=== PATIENT | female | born 1965 | race Caucasian/White ===

== ENCOUNTER 2018-10-15 08:40 | Outpatient (REF) | payer BC, SELFPAY ==
[2018-10-15 13:02] LABS: ALT 54 U/L (12-78); AST 27 U/L (15-37); Anion Gap 8.7 mmol/L (3-11); BUN 17 mg/dL (7-18); CO2 25.3 mmol/L (21.0-32.0); CREATININE 0.89 mg/dL (0.55-1.02); Calcium 9.6 mg/dL (8.5-10.1); Chloride 104 mmol/L (98-107); Cholesterol 206 mg/dL (50-200); Glucose 96 mg/dL (70-100); HDL Cholesterol 66 mg/dL (40-60); LDL CHOLESTEROL 120 mg/dL (<100); Potassium 4.7 mmol/L (3.5-5.1); Sodium 138 mmol/L (136-145); Triglyceride 90 mg/dL (30-150)
== END 2018-10-15 09:00 ==
LOC: NCHCN 08:40
PROVIDERS: PCP Nurse Practitioner Family; Visit Provider Nurse Practitioner Family
DX: E21.3 Hyperparathyroidism, unspecified (principal); F32.9 Major depressive disorder, single episode, unspecified; N39.3 Stress incontinence (female) (male); K30 Functional dyspepsia; R53.83 Other fatigue; I10 Essential (primary) hypertension; E78.00 Pure hypercholesterolemia, unspecified
CPT/HCPCS: 80048; 80061; 83721; 84450; 84460

== ENCOUNTER 2019-09-08 15:43 | Outpatient (REF) | payer BC, SELFPAY ==
--- NOTE | 2019-09-08 15:15 | PAPFT_PTH ---
PATIENT: Sarah Gomez LOC: [facility]#:[id number] AGE/SX: 54/F ROOM: RE09/08/[address]: Kamilah Evans : 1965 BED: DIS: 09/08/2019 SPEC #: [id number] RECD: 09/09/19 12:36 STATUS: ALIX REBrett #: [id number] VICENTE: 09/08/19 15:[address]: Kamilah Evans DEPT: [facility] Cytology RECD BY: Ashley Wyatt Tissues: 1 - CX/ENDOCX FOR PAP SMEARS Procedures: PAP THIN PREP/UVM Screening HPV DNA PROBE Comments: [id number]
[2019-09-08 21:47] LABS: Abs Immature Grans 0.01 k/cumm (0.0-0.09); Absolute Basophil Count 0.03 k/cumm (0.0-0.2); Absolute Eosinophil Count 0.06 k/cumm (0.0-0.7); Absolute Lymphocyte Count 1.24 k/cumm (1.2-3.4); Absolute Monocyte Count 0.49 k/cumm (0.11-0.7); Absolute Neutrophil Count 3.35 k/cumm (1.2-6.7); Basophils % 0.6; Eosinophils % 1.2; HCT 41.8 % (36.0-46.0); HGB 13.7 g/dL (12.0-15.5); Immature Grans % 0.2 %; Lymphocytes % 23.9; Mean Corp. HGB Concentration 32.8 g/dL (32.0-36.0); Mean Corpuscular Hemoglobin 26.9 pg (27.0-33.0); Mean Corpuscular Volume 82.1 fL (80-95); Mean Platelet Volume 9.9 fL (8.0-11.0); Monocytes % 9.5; Neutrophils % 64.6; Platelet Count 340 x1000/uL (130-400); RBC 5.09 m/cumm (4.00-5.20); RBC Distribution Width 14.1 % (11.7-14.6); White Blood Cell Count 5.18 k/cumm (4.4-10.8)
[2019-09-08 22:30] LABS: Vitamin D 25 Total 18.2 ng/ml (30-100)
[2019-09-08 23:30] LABS: ALT 43 U/L (14-59); AST 20 U/L (15-37); Albumin 4.2 g/dL (3.4-5.0); Alkaline Phosphatase 91 U/L (46-116); Anion Gap 14.7 mmol/L (3-11); BUN 13 mg/dL (7-18); Bilirubin, Total 0.2 mg/dL (0.2-1.0); CO2 21.3 mmol/L (21.0-32.0); CREATININE 0.77 mg/dL (0.55-1.02); Calcium 8.8 mg/dL (8.5-10.1); Calculated LDL 138 mg/dL (<100); Chloride 101 mmol/L (98-107); Cholesterol 231 mg/dL (<200); Glucose 86 mg/dL (74-106); HDL Cholesterol 65 mg/dL (40-60); Potassium 4.3 mmol/L (3.5-5.1); Sodium 137 mmol/L (136-145); TSH (W/Ref FT4) 2.13 uIU/mL (0.36-3.74); Total Protein 7.2 g/dL (6.4-8.2); Triglyceride 143 mg/dL (<150); Vitamin B12 528 pg/mL (193-986)
[2019-09-09 18:27] LABS: Estradiol 21 pg/mL (See Note)
[2019-09-10 14:24] LABS: LH 36.4 mIU/mL (See Note); Prolactin 9.4 ng/mL (See Table)
== END 2019-09-08 16:03 ==
LOC: NCHCN 15:43
PROVIDERS: PCP Nurse Practitioner Family; Visit Provider Nurse Practitioner Family
DX: Z00.00 Encounter for general adult medical examination without abnormal findings (principal); R53.83 Other fatigue; F32.9 Major depressive disorder, single episode, unspecified; E83.52 Hypercalcemia; E21.3 Hyperparathyroidism, unspecified; R06.83 Snoring; R19.7 Diarrhea, unspecified; N95.9 Unspecified menopausal and perimenopausal disorder; Z12.4 Encounter for screening for malignant neoplasm of cervix; Z01.419 Encounter for gynecological examination (general) (routine) without abnormal findings; Z11.51 Encounter for screening for human papillomavirus (HPV)
CPT/HCPCS: 80053; 80061; 82306; 88142; 82607; 82670; 83001; 83002; 84146; 84443; 85025; 87624

== ENCOUNTER 2019-09-11 01:18 | Outpatient (CLI) | payer BC, SELFPAY ==
--- NOTE | 2019-09-11 08:00 | DI.US_ITS ---
EXAM: US PELVIS TRANSVAGINAL CLINICAL HISTORY: POSTMENOPAUSAL BLEEDING, N95.9 TECHNIQUE: Ultrasound performed using standard protocol. COMPARISON: LEFT BREAST ULTRASOUND from 11/11/2008 FINDINGS: Pelvic ultrasound was performed transabdominally and transvaginally. Please see the accompanying yuan a sheet for measurements of pelvic structures. Uterus is unremarkable in appearance. The endometria l stripe is about 8 millimeters in thickness and appears fairly homogeneous. This measurement is abn ormally thick for a postmenopausal patient, endometrial biopsy should be considered. There is a possible small endometrial polyp in the lower uterine segment noted as well. There is a 9 millimeter simple cyst of the right ovary. Otherwise ovaries have an unremarkable appea malachi. No free fluid identified in the cul de sac. Limited scanning of the kidneys is unremarkable. IMPRESSION: Thickened endometrial stripe in a postmenopausal patient. Possible lower uterine segment endometrial polyp. Endometrial biopsy should be considered for further evaluation.
== END 2019-09-11 01:38 ==
PROVIDERS: PCP Nurse Practitioner Family; Visit Provider Nurse Practitioner Family
DX: N95.0 Postmenopausal bleeding (principal); R93.89 Abnormal findings on diagnostic imaging of other specified body structures; N83.291 Other ovarian cyst, right side
CPT/HCPCS: 76830; 76856

== ENCOUNTER 2019-10-02 16:31 | Outpatient (REF) | payer BC, SELFPAY ==
--- NOTE | 2019-10-02 14:20 | ENDOMET_PTH ---
PATIENT: Sarah Gomez LOC: [facility] U#:[id number] AGE/SX: 54/F ROOM: RE10/02/[address]: Marva Bronson : 1965 BED: DIS: 10/02/2019 SPEC #: [id number] RECD: 10/02/19 16:52 STATUS: ALIX REQ #: [id number] VICENTE: 10/02/19 14:[address]: Marva Bronson DEPT: Surgical Specimen RECD BY: Ashley Wyatt ENTERED: 10/02/19 16:53 SP TYPE: Endomet OTHR DR: Kamilah Evans Tissues: 1 - ENDOMETRIUM BX/PARISH Procedures: GROSS AND MICRO LEVEL 4 Comments: [id number]
== END 2019-10-02 16:51 ==
LOC: LBN 16:31
PROVIDERS: PCP Nurse Practitioner Family; Visit Provider Obstetrics & Gynecology Gynecology
DX: N95.0 Postmenopausal bleeding (principal)
CPT/HCPCS: 88305

== ENCOUNTER 2019-10-07 02:39 | Outpatient (CLI) | payer BC, SELFPAY ==
--- NOTE | 2019-10-07 | DI.MAMMO_ITS ---
EXAM: MAMMO SCREENING CLINICAL HISTORY: SCREENING Z12.31 TECHNIQUE: Mammograms were interpreted according to the usual protocol including computer analysis w [employer] CAD system, tomosynthesis and C-view imaging. COMPARISON: 2012 through 2016 FINDINGS: The breasts are composed of heterogeneously dense fibroglandular densities, Breast Density category C . No suspicious masses or suspicious microcalcifications are seen. No skin thickening or abnormal axillary lymph nodes are seen. There has been no significant change from prior exams. IMPRESSION: BIRADS Category 1, negative mammogram. Yearly screening mammography is recommended. BREAST DENSITY: The mammogram demonstrates the patient's breast tissue is dense. Dense breast tissue is very common and is not abnormal but dense breast tissue can make it harder to find cancer on a ma mmogram. Also, dense breast tissue may increase breast cancer risk. This information about the result of the mammogram report was provided to the patient to raise their awareness. Use this report when y ou speak with the patient about their risks for breast cancer, which includes their family history. A t that time, you may recommend additional screening tests (Ultrasound or MRI) as they might be useful based on their risk. A negative radiographic report should not delay biopsy if a dominant or clinically suspicious mass is present. Up to ten percent of cancers are not identified on mammography. A negative report may reinforce clinical impression. Adenosis and dense breasts may obscure an underlying neoplasm. False positive reports average 6 to 10%.
== END 2019-10-07 02:59 ==
PROVIDERS: PCP Nurse Practitioner Family; Visit Provider Nurse Practitioner Family
DX: Z12.31 Encounter for screening mammogram for malignant neoplasm of breast (principal)
CPT/HCPCS: 77063; 77067

== ENCOUNTER 2019-12-30 01:50 | Outpatient (CLI) | payer BC, SELFPAY ==
[2019-12-30 10:17] LABS: HCT 40.2 % (36.0-46.0); HGB 13.1 g/dL (12.0-15.5); Mean Corp. HGB Concentration 32.6 g/dL (32.0-36.0); Mean Corpuscular Hemoglobin 26.9 pg (27.0-33.0); Mean Corpuscular Volume 82.5 fL (80-95); Mean Platelet Volume 9.4 fL (8.0-11.0); Platelet Count 316 x1000/uL (130-400); RBC 4.87 m/cumm (4.00-5.20); RBC Distribution Width 14.3 % (11.7-14.6); White Blood Cell Count 4.95 k/cumm (4.4-10.8)
[2019-12-30 10:57] LABS: Anion Gap 9.2 mmol/L (3-11); BUN 18 mg/dL (7-18); CO2 24.8 mmol/L (21.0-32.0); CREATININE 0.94 mg/dL (0.55-1.02); Calcium 9.2 mg/dL (8.5-10.1); Chloride 102 mmol/L (98-107); Glucose 88 mg/dL (74-106); Potassium 4.1 mmol/L (3.5-5.1); Sodium 136 mmol/L (136-145)
== END 2019-12-30 02:10 ==
PROVIDERS: PCP Nurse Practitioner Family; Visit Provider Obstetrics & Gynecology Gynecology
DX: N95.0 Postmenopausal bleeding (principal); Z01.818 Encounter for other preprocedural examination; Z01.812 Encounter for preprocedural laboratory examination
CPT/HCPCS: 36415; 80048; 85027; 86850; 86900; 86901

== ENCOUNTER 2020-01-05 08:32 | Outpatient (CLI) | payer BC, SELFPAY ==
[2020-01-05 19:58] LABS: COVID-19 RT-PCR UVMMC Result Negative (Negative)
== END 2020-01-05 08:52 ==
PROVIDERS: PCP Nurse Practitioner Family; Visit Provider Obstetrics & Gynecology Gynecology
DX: Z11.59 Encounter for screening for other viral diseases (principal)
CPT/HCPCS: U0003

== ENCOUNTER 2020-01-07 06:09 | Day surgery (SDC) | payer BC, SELFPAY ==
[2020-01-07 06:28] VITALS: BP 140/87; PULSE 73; RESP 16; TEMP 36.6; O2SAT 97
[2020-01-07] MEDS: Lactated Ringers 1,000 ML 125 ML IV (06:50)
[2020-01-07] MEDS: Bupivacaine 0.25% Pres-Free 30 ML VIAL (07:56)
--- NOTE | 2020-01-07 08:10 | ENDOMET_PTH ---
PATIENT: Sarah Gomez LOC: [facility] U#:[id number] AGE/SX: 54/F ROOM: RE01/07/[address]: Marva Bronson : 1965 BED: DIS: 01/07/2020 SPEC #: [id number] RECD: 01/07/20 11:26 STATUS: ALIX REQ #: [id number] VICENTE: 01/07/20 08:[address]: Marva Bronson DEPT: Surgical Specimen RECD BY: Ashley Wyatt ENTERED: 01/07/20 11:26 SP TYPE: Endomet OTHR DR: Kamilah Evans Tissues: 1 - ENDOMETRIUM BX/PARISH Procedures: GROSS AND MICRO LEVEL 4 Comments: [id number]
[2020-01-07 08:40] VITALS: BP 131/68; PULSE 70; RESP 16; TEMP 36.2; O2SAT 98
[2020-01-07 08:45] VITALS: BP 129/76; PULSE 60; RESP 17; TEMP 36.2; O2SAT 100
--- NOTE | 2020-01-07 08:45 | W.PM.DSUDISC ---
Discharge Plan Discharge Details Attending Provider: Marva Bronson Primary Care Provider: Kamilah Evans Home Meds and New Rx's Prescriptions: No Action spironolactone 25 mg tablet 25 mg PO DAILY RF: 0 loratadine 10 MG tablet,disintegrating 10 mg PO DAILY RF: 0 paroxetine HCl [Paxil] 10 MG tablet 10 mg PO DAILY RF: 0 verapamil 180 MG capsule,ext rel. pellets 24 hr 360 mg PO DAILY RF: 0 lisinopril 5 MG tablet 5 mg PO DAILY RF: 0 Discharge Instructions Stand Alone Forms: DSU Post Gynecology Surgery DS: Diagnosis Discharge Diagnosis (1) Postmenopausal bleeding: Status: Acute (2) H/O dilation and curettage: Status: Acute
[2020-01-07 08:50] VITALS: BP 115/68; PULSE 61; RESP 13; TEMP 36.2; O2SAT 100
[2020-01-07 09:05] VITALS: BP 139/93; PULSE 59; RESP 16; TEMP 36.4; O2SAT 99
[2020-01-07 09:42] VITALS: BP 132/67; PULSE 60; RESP 16; TEMP 36.5; O2SAT 97
--- NOTE | 2020-01-07 14:29 | W.PM.OP ---
Date of service: 01/07/20 Time of Service: 14:29 Operative Note Operative Note DATE OF PROCEDURE: 01/07/20 PRE-OP DIAGNOSIS: Postmenopausal bleeding Postmenopausal bleeding, endometrial polyps PROCEDURE: Hysteroscopy, suction curettage of endometrial lining and polypectomy SURGEON: Marva Bronson ANESTHESIA: JENNIFER ESTIMATED BLOOD LOSS: 5 PATHOLOGY: other (Endometrial curettings) COMPLICATIONS: None Patient was transported to: same day Patient's condition: stable Indications: Two episodes of postmenopausal bleeding with 8 mm ES. An endometrial biopsy which returned with no intact endometrial glands. Pt agreed to definitive assessment with hysteroscopy and D&C. Findings: Thin appearing endometrial lining with several small polypoid structures. Procedure Description: Patient was brought to the emergency room where she was placed in the dorsal supine position and laryngeal mask anesthesia was administered without difficulty. She was then placed in the dorsal lithotomy position in yellowfin stirrups with SCDs in place. She was prepped and draped in the usual sterile fashion and a surgical timeout was performed. The bladder was drained with in and out catheterization for approximately 50 cc of clear alison urine. A bivalve speculum was placed in the vagina and the anterior lip of the cervix was grasped with a single-tooth tenaculum. A paracervical block was performed using 10 cc quarter percent Marcaine without epinephrine. The uterus was sounded to 10 cm and was sequentially dilated for a maximum dilatation of 17 Sequeira. This allowed placement of the hysteroscope into the uterine cavity with normal saline as the distention medium and the above-noted findings. An 8 mm curved suction cannula was inserted into the uterine cavity and all 4 quadrants of the uterine cavity were sequentially suction curetted. A banjo curette was then inserted and in a similar fashion all 4 quadrants of the uterine cavity were curetted. The banjo curette was removed and the hysteroscope was reintroduced and the uterine cavity inspected. The previously noted polyps were not visible. Hysteroscope was removed as were the other vaginal instruments. The tenaculum site was noted be hemostatic. Patient was then placed in the dorsal supine position awakened from anesthesia, extubated, and transported recovery area in stable condition. All sponge lap needle counts correct x2.
== END 2020-01-07 10:13 | disposition home or self-care (01) ==
LOC: SUR 06:10
PROVIDERS: PCP Nurse Practitioner Family; Visit Provider Obstetrics & Gynecology Gynecology
PROC: 0UDB8ZZ Extraction of Endometrium, Via Natural or Artificial Opening Endoscopic (ICD-10-PCS; CPT 58558; principal; 2020-01-07 07:30)
PROC: (CPT 59841; 2020-01-07 07:30)
DX: N95.0 Postmenopausal bleeding (principal); N84.0 Polyp of corpus uteri
CPT/HCPCS: 58558; 88305; J0131; J1100; J1885; J2001; J2405

== ENCOUNTER 2020-09-27 14:21 | Outpatient (REF) | payer OTHER, SELFPAY ==
[2020-09-27 14:01] LABS: ALT 45 U/L (14-59); AST 19 U/L (15-37); Albumin 3.9 g/dL (3.4-5.0); Alkaline Phosphatase 88 U/L (46-116); BUN 21 mg/dL (7-18); Bilirubin, Total 0.2 mg/dL (0.2-1.0); CREATININE 0.9 mg/dL (0.55-1.02); Calcium 9.4 mg/dL (8.5-10.1); Chloride 101 mmol/L (98-107); Glucose 151 mg/dL (74-106); Potassium 4.3 mmol/L (3.5-5.1); Sodium 136 mmol/L (136-145); TSH (W/Ref FT4) 1.34 uIU/mL (0.36-3.74); Total Protein 7.2 g/dL (6.4-8.2)
[2020-09-27 14:07] LABS: Vitamin D 25 Total 22.2 ng/ml (30-100)
== END 2020-09-27 14:22 | disposition home or self-care (01) ==
LOC: NCHCN 14:21
PROVIDERS: PCP Nurse Practitioner Family; Visit Provider Nurse Practitioner Family
DX: I10 Essential (primary) hypertension (principal); E78.00 Pure hypercholesterolemia, unspecified; F32.9 Major depressive disorder, single episode, unspecified; E21.3 Hyperparathyroidism, unspecified; E55.9 Vitamin D deficiency, unspecified
CPT/HCPCS: 80053; 82306; 84443

== ENCOUNTER 2020-10-01 16:52 | Outpatient (REF) | payer OTHER, SELFPAY ==
[2020-10-01 21:15] LABS: Hemoglobin A1C 6.2 % (<5.7)
== END 2020-10-01 16:53 | disposition home or self-care (01) ==
LOC: NCHCN 16:52
PROVIDERS: PCP Nurse Practitioner Family; Visit Provider Nurse Practitioner Family
DX: R73.9 Hyperglycemia, unspecified (principal)
CPT/HCPCS: 83036

== ENCOUNTER 2021-07-07 10:38 | Outpatient (CLI) | payer OTHER, SELFPAY ==
--- NOTE | 2021-07-07 10:15 | DI.RAD_ITS ---
Exam(s) XR KNEE RT 3V AP,LAT,OLGA EXAM: XR KNEE RT 3V AP,LAT,OLGA CLINICAL HISTORY: right knee pain. TECHNIQUE: 2D digital imaging was performed. COMPARISON: No exams were available for comparison FINDINGS: There is no evidence of fracture or joint effusion. There is [id number] narrowing of the medial compartment as well as marginal osteophytes. Lateral c ompartment height is normal. Moderate degenerative changes in the patellofemoral compartment. Bone density is normal. No ominous osseous lesions. IMPRESSION: Degenerative changes as described above. DATA REPOSITORY: RADIATION DOSE DELIVERED:
--- NOTE | 2021-07-07 10:15 | DI.RAD_ITS ---
Exam(s) XR KNEE LT 3V AP,LAT,OLGA EXAM: XR KNEE LT 3V AP,LAT,OLGA CLINICAL HISTORY: left knee pain. TECHNIQUE: 2D digital imaging was performed. COMPARISON: CR XR KNEE RT 3V AP,LAT,OLGA from 07/07/2021 FINDINGS: There is no evidence of fracture. Small amount of increased joint fluid noted. There is bone-on-bon e narrowing of the medial compartment and marginal osteophytes. Lateral compartment is relatively pr eserved. Moderate degenerative changes are evident in the patellofemoral compartment. No osseous le sions. Bone density normal IMPRESSION: Degenerative changes as described above, most prominent in the medial compartment. DATA REPOSITORY: RADIATION DOSE DELIVERED:
== END 2021-07-07 10:39 | disposition home or self-care (01) ==
LOC: DIORS 10:38
PROVIDERS: PCP Nurse Practitioner Family; Referring Provider Nurse Practitioner Family; Visit Provider Student in an Organized Health Care Education/Training Program
DX: M25.561 Pain in right knee (principal); M25.562 Pain in left knee; M17.0 Bilateral primary osteoarthritis of knee
CPT/HCPCS: 73562

== ENCOUNTER 2021-09-23 15:06 | Outpatient (REF) | payer BC, SELFPAY ==
[2021-09-23 15:19] LABS: Abs Immature Grans 0.01 10^3/uL (0.0-0.06); Absolute Basophil Count 0.03 10^3/uL (0.0-0.2); Absolute Eosinophil Count 0.06 10^3/uL (0.0-0.7); Absolute Lymphocyte Count 0.99 10^3/uL (1.2-3.4); Absolute Monocyte Count 0.35 10^3/uL (0.1-0.8); Absolute Neutrophil Count 2.63 10^3/uL (1.2-6.7); Basophils % 0.7; Eosinophils % 1.5; HCT 44.4 % (36.0-46.0); HGB 13.8 g/dL (11.2-15.7); Immature Grans % 0.2; Lymphocytes % 24.3; MCHC 31.1 % (32.0-36.0); MCV 83.6 fL (80-95); Monocytes % 8.6; Neutrophils % 64.7; Nucleated RBC 0 %; Platelet Count 315 10^3/uL (130-400); RBC 5.31 10^6/uL (3.93-5.22); RDW 14.4 % (11.7-14.6); RDW-SD 43.8 fL; WBC 4.07 10^3/uL (4.4-10.8)
[2021-09-23 15:44] LABS: Iron 103 ug/dL (50-170); Total Iron Binding Capacity 330 ug/dL (250-450); Transferrin Sat 31 % (15-50)
[2021-09-23 16:02] LABS: ALT 45 U/L (14-59); AST 21 U/L (15-37); Albumin 3.8 g/dL (3.4-5.0); Alkaline Phosphatase 87 U/L (46-116); Anion Gap 10.5 mmol/L (3-11); BUN 12 mg/dL (7-18); Bilirubin, Total 0.4 mg/dL (0.2-1.0); CO2 24.5 mmol/L (21.0-32.0); CREATININE 0.8 mg/dL (0.55-1.02); Calcium 9.2 mg/dL (8.5-10.1); Calculated LDL 136 mg/dL (<100); Chloride 102 mmol/L (98-107); Cholesterol 235 mg/dL (<200); Glucose 102 mg/dL (74-106); HDL Cholesterol 65 mg/dL (40-60); Potassium 4.3 mmol/L (3.5-5.1); Sodium 137 mmol/L (136-145); TSH (W/Ref FT4) 0.85 uIU/mL (0.36-3.74); Total Protein 6.8 g/dL (6.4-8.2); Triglyceride 172 mg/dL (<150); Vitamin B12 393 pg/mL (193-986)
[2021-09-23 22:29] LABS: Ferritin 44 ng/mL (10-291)
[2021-09-26 06:40] LABS: Vitamin D 25 Total 23.4 ng/mL (30-100)
== END 2021-09-23 15:07 | disposition home or self-care (01) ==
LOC: NCHCN 15:06
PROVIDERS: PCP Nurse Practitioner Family; Visit Provider Nurse Practitioner Family
DX: I10 Essential (primary) hypertension (principal); E55.9 Vitamin D deficiency, unspecified; F32.9 Major depressive disorder, single episode, unspecified; E78.00 Pure hypercholesterolemia, unspecified; E21.3 Hyperparathyroidism, unspecified; E83.52 Hypercalcemia; G47.62 Sleep related leg cramps
CPT/HCPCS: 80053; 80061; 82306; 82607; 82728; 83540; 83550; 83735; 84443; 85025

== ENCOUNTER → 2021-10-07 00:17 | Outpatient (CLI) | payer BC, SELFPAY ==
--- NOTE | 2021-10-07 15:48 | DI.MAMMO_ITS ---
Exam(s) MAMMO SCREENING EXAM: MAMMO SCREENING CLINICAL HISTORY: SCREENING, Z12.31 TECHNIQUE: Bilateral full field digital CC and MLO mammographic images were obtained with 3D tomosyn thesis and utilizing computer aided detection (CAD). COMPARISON: Available for comparison. FINDINGS: Masses/Architectural Distortion: There is a new area of asymmetric breast tissue in the upper-outer q uadrant of the left breast. This area should be further evaluated with a spot compression view. Ult rasound may be indicated at that time. Microcalcifications: No suspicious pleomorphic-type are seen. Skin Thickening/Nipple Retraction: None. IMPRESSION: 1. New asymmetric density in the upper-outer quadrant of the left breast. 2. Spot compression views are requested. Ultrasound should also be obtained at that time. BI-RADS Category 0 - Assessment Incomplete: Need additional imaging evaluation Breast Density - Category C - Heterogeneously dense Breast density category C or D implies that the patient has dense breast tissue. Dense breast tissue is very common and is not abnormal but dense breast tissue can make it harder to find cancer on a ma mmogram. Also, dense breast tissue may increase their breast cancer risk. This information about the result of the mammogram report was provided to the patient to raise their awareness. Use this report when you speak with the patient about their risks for breast cancer, which includes their family hist ory. At that time, you may recommend for more screening tests (Ultrasound or MRI) as they might be us eful based on their risk. A negative radiographic report should not delay biopsy if a dominant or clinically suspicious mass is present. Up to ten percent of cancers are not identified on mammography. A negative report may reinforce clinical impression. Adenosis and dense breasts may obscure an underlying neoplasm. False positive reports average 6 to 10%. Patient will receive a letter notifying them of these results.
== END ==
PROVIDERS: PCP Nurse Practitioner Family; Visit Provider Nurse Practitioner Family
DX: Z12.31 Encounter for screening mammogram for malignant neoplasm of breast (principal); R92.8 Other abnormal and inconclusive findings on diagnostic imaging of breast
CPT/HCPCS: 77063; 77067

== ENCOUNTER → 2021-10-17 00:15 | Outpatient (CLI) | payer BC, SELFPAY ==
--- NOTE | 2021-10-17 | DI.MAMMO_ITS ---
Exam(s) MG MAMMO SCREEN CALL BACK UNI US BREAST LT LIMITED EXAM: MG MAMMO SCREEN CALL BACK UNI CLINICAL HISTORY: F/U MAMMO, NEW ASYMMETRIC DENSITY,R92.8. TECHNIQUE: Craniocaudal and mediolateral oblique spot compression digital Mammography views of the l eft breast with Computer Aided Diagnosis followed by Tomosynthesis andleft breast ultrasound. COMPARISON: MG MG MAMMO SCREENING from 10/07/2021 US US BREAST LT LIMITED from 10/17/2021 FINDINGS: Mammography/Tomosynthesis: Masses/Architectural Distortion: Suspicious dense spiculated mass in the posterior upper outer quadra nt measuring roughly 2.5 cm. There is an adjacent lymph node. Microcalcifictions: No suspicious pleomorphic-type are seen. Skin Thickening/Nipple Retraction: None. Left breast US: Irregular shadowing mass upper outer quadrant of left breast, 2 o'clock position, 11 cm from the nipp le. Borders are difficult to discretely measure.. Associated posterior shadowing. Adjacent lymph n ode measuring 7 millimeters. Cyst: None. Ductal dilation: None. IMPRESSION: Suspicious spiculated mass in the upper outer quadrant of the left breast. BI-RADS Category 5 - Highly Suggestive of Malignancy: Biopsy recommended Findings called to Kmailah Evans, referring provider. Breast Density - Category C - Heterogeneously dense A mammogram that demonstrates density of C or D indicates the patient's breast tissue is dense. Dense breast tissue is very common and is not abnormal, but dense breast tissue can make it harder to find cancer on a mammogram. Also, dense breast tissue may increase their breast cancer risk. This informa tion about the result of the mammogram report was provided to the patient to raise their awareness. U se this report when you speak with the patient about their risks for breast cancer, which includes th eir family history. At that time, you may recommend for more screening tests (Ultrasound or MRI) as t hey might be useful based on their risk. A negative radiographic report should not delay biopsy if a dominant or clinically suspicious mass is present. Up to ten percent of cancers are not identified on mammography. A negative report may reinforce clinical impression. Adenosis and dense breasts may obscure an underlying neoplasm. False positive reports average 6 to 10%. Patient will receive a letter notifying them of these results.
== END ==
PROVIDERS: PCP Nurse Practitioner Family; Visit Provider Nurse Practitioner Family
DX: Z12.31 Encounter for screening mammogram for malignant neoplasm of breast (principal); R92.8 Other abnormal and inconclusive findings on diagnostic imaging of breast; N63.21 Unspecified lump in the left breast, upper outer quadrant
CPT/HCPCS: 76642; 77063; 77067

== ENCOUNTER 2022-08-21 10:45 | Outpatient (CLI) | payer BC, SELFPAY ==
--- NOTE | 2022-08-21 08:30 | DI.RAD_ITS ---
Exam(s) XR KNEE LT 1V XR STANDING ALIGNMENT EXAM: XR STANDING ALIGNMENT and XR knee LT 1 V CLINICAL HISTORY: left knee DJD. TECHNIQUE: 2D digital imaging was performed. Five images were obtained. COMPARISON: CR XR KNEE LT 1V from 08/21/2022 FINDINGS: BONES: The hips are well maintained. In the left knee, there is tricompartment osteoarthritis presen t. The findings are most marked in the medial femoral tibial and patellofemoral joints. There is roseann int space narrowing and periarticular spurring present. Degenerative changes are also seen in the ri ght knee with joint space narrowing and periarticular spurring. The findings are most marked in the medial femoral tibial joint space. The ankles are well maintained.There is no significant leg length discrepancy. SOFT TISSUE: Normal. IMPRESSION: Osteoarthritis of the knees bilaterally. DATA REPOSITORY: RADIATION DOSE DELIVERED:
== END 2022-08-21 10:46 | disposition home or self-care (01) ==
LOC: DIORS 10:45
PROVIDERS: PCP Nurse Practitioner Family; Referring Provider Nurse Practitioner Family; Visit Provider Physician Assistant
DX: M17.0 Bilateral primary osteoarthritis of knee (principal)
CPT/HCPCS: 73560; 77073

== ENCOUNTER 2022-08-29 03:21 | Outpatient (CLI) | payer BC, SELFPAY ==
[2022-08-29 10:26] LABS: Anion Gap 8.8 mmol/L (3-11); BUN 15 mg/dL (7-18); CO2 27.2 mmol/L (21.0-32.0); CREATININE 0.9 mg/dL (0.55-1.02); Calcium 9.4 mg/dL (8.5-10.1); Chloride 100 mmol/L (98-107); Estimated GFR 73.64 (mL/min/1.73m2); Glucose 175 mg/dL (74-106); Potassium 3.9 mmol/L (3.5-5.1); Sodium 136 mmol/L (136-145)
[2022-08-29 10:34] LABS: HCT 41.7 % (36.0-46.0); HGB 13.4 g/dL (11.2-15.7); MCH 26.7 pg (27.0-33.0); MCHC 32.1 % (32.0-36.0); MCV 83 fL (80-95); MPV 9.5 fL (8.0-11.0); Platelet Count 324 10^3/uL (130-400); RBC 5.02 10^6/uL (3.93-5.22); RDW 13.6 % (11.7-14.6); RDW-SD 41.3 fL; WBC 4.72 10^3/uL (4.4-10.8)
== END 2022-08-29 03:22 | disposition home or self-care (01) ==
LOC: LBO 03:21
PROVIDERS: PCP Nurse Practitioner Family; Visit Provider Student in an Organized Health Care Education/Training Program
DX: M25.562 Pain in left knee (principal); M17.12 Unilateral primary osteoarthritis, left knee; Z01.818 Encounter for other preprocedural examination; Z01.812 Encounter for preprocedural laboratory examination
CPT/HCPCS: 36415; 80048; 85027

== ENCOUNTER 2022-09-05 08:23 | Day surgery (SDC) | payer BC, SELFPAY ==
[2022-09-05] VITALS (9 sets, daily range): BP systolic 108–141; BP diastolic 51–92; PULSE 61–71; RESP 11–18; TEMP 36–37.1; O2SAT 94–99; BMI 46.8
--- NOTE | 2022-09-05 08:13 | W.PM.DS.N ---
Date of service: 09/05/22 Time of Service: 09:38 DS: Diagnosis Discharge Diagnosis (1) Left knee DJD: Status: Acute Discharge Plan Disposition Patient Disposition: Home Condition: Good Discharge Details Reason For Visit: Left knee DJD Attending Provider: Cruz Handely Primary Care Provider: Kamilah Evans Home Meds and New Rx's Prescriptions: New acetaminophen 500 mg tablet 1,000 mg PO Q8H PRN Qty: 90 0RF Rx Instructions: Take two tablets up to every 8 hours as needed for pain aspirin 81 mg tablet,delayed release (DR/EC) 81 mg PO BID 30 Days Qty: 60 0RF docusate sodium [Colace] 100 mg capsule 100 mg PO BID Qty: 30 0RF meloxicam 15 mg tablet 15 mg PO DAILY Qty: 30 1RF Rx Instructions: Take one tablet daily for pain and inflammation dexamethasone 4 mg tablet 4 mg PO DAILY Qty: 2 0RF Rx Instructions: Take one tablet once daily for two days gabapentin 300 mg capsule 300 mg PO QHS Qty: 14 0RF Rx Instructions: Take one tablet at bedtime oxycodone 5 mg tablet 5 mg PO Q4H PRN (Reason: severe post-operative pain) Qty: 18 0RF Rx Instructions: Take one tablet up to every 4 hours as needed for severe pain Continued anastrozole 1 mg tablet 1 mg PO DAILY spironolactone 25 mg tablet 25 mg PO DAILY paroxetine HCl [Paxil] 10 MG tablet 10 mg PO DAILY verapamil 180 MG capsule,ext rel. pellets 24 hr 360 mg PO DAILY lisinopril 5 MG tablet 5 mg PO DAILY Label Comments: DOSE INCREASED YESTERDAY omeprazole 20 mg capsule,delayed release(DR/EC) 1 cap PO DAILY Label Comments: TAKE ONE CAPSULE BY MOUTH EVERY DAY No Action Tylenol PM 25-500 mg-mg/mL Solution Discharge Instructions Additional Instructions: Total Knee Discharge Instructions Activity: The most important activity is to walk and to work on gentle motion (both flexion and extension). You should try to take short walks a few times a day. It is important that when resting you work on keeping the knee straight. Avoid putting a pillow behind the knee as this will encourage flexion. Work on range of motion exercises as provided by Physical Therapy. - Start outpatient physical therapy within 2 weeks. - You should wear the VINICIO hose on both legs for 2 weeks. You may remove these at night. You may also use any compression sock in place of the VINICIO hose. - Utilize [employer] to review exercises, see videos on exercises and obtain basic information pertaining to your surgery and your recovery. Dressing: Remove the Khanh wrap by 2 days after your surgery and put on the VINICIO stocking given to you from the hospital. Keep the surgical dressing (underneath the KHANH wrap) in place for at least one week. After the first week it may be removed and replaced with light gauze and tape or nothing. The wound and dressing may get wet after 3 days but avoid soaking the dressing or otherwise it will need to be changed. Many people prefer covering the dressing with cling wrap (saran wrap) to minimize it from getting soaked. If it gets wet, just pat dry. If it starts to peel off then it will need to be changed. Medications: - You should take Tylenol and anti-inflammatory Meloxicam as your primary pain control medications. If the Meloxicam is too expensive or not covered, please call the office for another alternative (Advil/Ibuprofen or Naproxen/Aleve) - You have been prescribed a stronger pain medication Oxycodone for breakthrough pain, take as needed as prescribed. - You normally take a stomach acid reduction agent, Omeprazole, to help reduce stomach acid and reflux - continue with this medication - You have been prescribed Gabapentin to take at night for restlessness and nerve pain. - You will be taking Aspirin 81mg twice a day for DVT prevention unless instructed otherwise. - You have also been prescribed Decadron to take to control post-operative nausea and pain. You will start this tomorrow. - If you have constipation you should take Colace (which has been prescribed) or Miralax (which is available [id number]). It takes most people 3-4 days to have a bowel movement. Follow-up: 2 weeks If you have any acute concerns or questions, please do not hesitate to contact the office at [phone]. You may contact Dr. Handley with any questions after hours through the hospital at [phone] or on his cell phone at [phone]. Stand Alone Forms: Anesthesia Discharge Inst., Yared.Nerve Block Instructions, Layo Young (DSU) Equipment/Supplies: Walker Activity:: Elevate Remove Dressings/Wound Care:: Do Not Remove Shower/Bathe:: Cover Diet:: As Tolerated Discharge Orders Discharge Orders: Discharge Order (Routine); Ordered 09/05/22 Ordered By: Cruz Handley DS: Summary Time Spent with Patient providing and/or coordinating discharge services: Less than 30 minutes Status at Discharge Functional status at discharge: uses cane/walker Overall status at discharge: patient is progressing back to baseline Mental Status: mental status grossly normal Speech and Movement: speech and movement normal Mood: congruent mood Affect: normal affect Exam Psych Mental Status: mental status grossly normal Speech and Movement: speech and movement normal Mood: congruent mood Affect: normal affect DS: Data Vitals/I&O Vitals and I&O: Intake & Output 09/04/22 09/04/22 09/05/22 11:59 23:59 11:59 Weight 270 lb PFSH All Active Problems Postmenopausal bleeding (Acute) Due 2020 bleeding over several days. ES 8 mm. ? Endometrial polyp. 10/02/2019. EmBx. Stress incontinence (Acute) Hypercholesterolemia (Acute) History of endometrial biopsy (Acute) H/O dilation and curettage (Acute) 01/07/20. for PMB. Bilateral primary osteoarthritis of knee (Acute) Depo-Medrol injection: 12/09/21; 07/07/2021 Left knee DJD (Acute) Medical History Depression Epilepsy No seizures since 1991 History of breast cancer not currently recieving tx on anatrazole maintenance therapy History of hyperparathyroidism Resolved after parathyroidectomy. HTN (hypertension) Hx of radiation therapy Obesity Surgical History Colonoscopy - MAC (11/13/16) History of lumpectomy History of parathyroid surgery Family History Mother Diabetes Heart disease Hypertension Father Diabetes Heart disease Hypertension Social History Smoking/Tobacco Use Status: Never Smoking risk assessment performed?: Yes Alcohol Intake: current Alcohol Intake frequency: 0-2 drinks per day Alcohol type: beer and hard liquor Drug use: Never Substance use type: does not use Details: alcohol: t-1, 1 drinks Household members: spouse, children and other Details: H-Lon since 1998, Nichelle-Matthew 13yo at [facility] Number of Children: 1 current occupation: [employer] Sexually active: Yes What is your relationship status?: Panel score (0-1 are the most socially isolated patients): 1 Seatbelt use: always Do you feel safe at home: Yes Do you feel safe in your relationship?: Yes Additional Social history: unable to assess privately History History 1 Para Hx # Term Pregnancies 1 Multiple births Hx # Pregnancies Ectopic pregnancies AB induced Hx Number of Living Children AB spontaneous Time Spent with Patient Time Spent with Patient: <45 minutes Time was spent: preparing to see the patient(eg.review tests) and ordering medications,tests, procedures
[2022-09-05] MEDS: Meloxicam 15 MG TAB PO (09:15)
[2022-09-05] MEDS: Acetaminophen 500 MG TAB 1000 MG PO (09:15)
[2022-09-05] MEDS: Gabapentin 300 MG CAP PO (09:15)
[2022-09-05] MEDS: Lactated Ringers 1,000 ML 80 ML IV (09:25)
--- NOTE | 2022-09-05 09:59 | ANES.PREOP_ITS ---
General Info Date of Service Date Performed: 09/05/22 Height: 5 ft 4 in Weight: 123.9 kg Body Mass Index (BMI): 46.8 Surgical Procedure: Operation Date: 09/05/22 11:55 Proposed Procedure Side Surgeon p Knee Total Arthroplasty Left Cruz Handley MD Meds Allergies and Home Medications Allergies Allergy/AdvReac Type Severity Reaction Status Date / Time adhesive Allergy Severe Skin Rash Unverified 09/05/22 08:45 carbamazepine [From Tegretol] Allergy Mild Skin Rash Unverified 09/05/22 08:45 nitrile Allergy Mild Skin Rash Unverified 09/05/22 08:45 Sulfa (Sulfonamide Allergy Mild Skin Rash Unverified 09/05/22 08:45 Antibiotics) Home Medication Medication Instructions Recorded Paxil 10 mg tablet (paroxetine HCl) 10 mg PO DAILY 10/31/16 lisinopril 5 mg tablet 5 mg PO DAILY 10/31/16 verapamil 180 mg 24 hr 360 mg PO DAILY 10/31/16 capsule,extended release spironolactone 25 mg tablet 25 mg PO DAILY 10/02/19 anastrozole 1 mg tablet 1 mg PO DAILY 08/21/22 omeprazole 20 mg capsule,delayed 1 cap PO DAILY 09/04/22 release acetaminophen 500 mg tablet 1,000 mg PO Q8H PRN pain #90 tabs 09/05/22 aspirin 81 mg tablet,delayed 81 mg PO BID 30 days #60 tabs 09/05/22 release dexamethasone 4 mg tablet 4 mg PO DAILY #2 tabs 09/05/22 diphenhydramine 25 ml 09/05/22 mg-acetaminophen 500 mg/15 mL oral solution docusate sodium 100 mg capsule 100 mg PO BID #30 caps 09/05/22 (Colace) gabapentin 300 mg capsule 300 mg PO QHS #14 caps 09/05/22 meloxicam 15 mg tablet 15 mg PO DAILY #30 tabs 09/05/22 oxycodone 5 mg tablet 5 mg PO Q4H PRN severe 09/05/22 post-operative pain #18 tabs Current Visit Medications: Current Medications Generic Name Dose Route Start Last Admin Trade Name Freq PRN Reason Stop Dose Admin Acetaminophen 1,000 mg 09/05/22 06:00 09/05/22 09:15 Acetaminophen 500 Mg Tab PO 09/05/22 16:00 1,000 mg PREOP KIN Administration Acetaminophen 1,000 mg 09/05/22 14:00 Acetaminophen 500 Mg Tab PO TID [facility] Aspirin 81 mg 09/05/22 20:00 Aspirin E.C. 81 Mg Tabec PO BID [facility] Dexamethasone 4 mg 09/06/22 08:30 Dexamethasone 4 Mg Tab PO 09/07/22 08:31 DAILY [facility] Docusate Sodium 100 mg 09/05/22 08:11 Docusate Sodium 100 Mg Cap PO BID PRN PRN Constipation Gabapentin 300 mg 09/05/22 06:00 09/05/22 09:15 Gabapentin 300 Mg Cap PO 09/05/22 18:00 300 mg PREOP KIN Administration Gabapentin 300 mg 09/05/22 22:00 Gabapentin 300 Mg Cap PO HS [facility] Hydromorphone HCl 0.5 mg 09/05/22 08:11 Hydromorphone 2 Mg/Ml Syr IVP Q2H PRN PRN Tranexamic Acid 1,000 mg/ 60 mls @ 360 mls/hr 09/05/22 06:00 Sodium Chloride IV 09/05/22 16:00 PREOP [facility] Ringer's Solution 1,000 mls @ 80 mls/hr 09/05/22 06:00 IV 10/04/22 23:59 INFUSION [facility] Cefazolin Sodium 3,000 mg/ 100 mls @ 200 mls/hr 09/05/22 06:00 Sodium Chloride IVPB 09/05/22 18:00 PREOP [facility] Cefazolin Sodium/Dextrose 1 gm in 50 mls @ 100 mls/hr 09/05/22 10:00 Ancef Duplex IVPB 09/06/22 02:29 Q8H [facility] IV Miscellaneous Supplies 1 each 09/05/22 06:00 Iv Access IV 10/04/22 23:59 DIRECTED [facility] Meloxicam 15 mg 09/05/22 06:00 09/05/22 09:15 Meloxicam 15 Mg Tab PO 09/05/22 18:00 15 mg PREOP [facility] Administration Oxycodone HCl 0 mg 09/05/22 08:11 Oxycodone 5 Mg Tab PO Q3H PRN PRN Pain Pantoprazole Sodium 40 mg 09/06/22 07:30 Pantoprazole 40 Mg Tabcr PO DAILY@0730 [facility] Polyethylene Glycol 17 gm 09/05/22 08:11 Polyethylene Glycol 3350 17 Gm Packet PO BID PRN PRN Constipation Sodium Chloride 0 ml 09/05/22 06:00 Normal Saline Flush 10 Ml Syr IV 10/04/22 23:59 PRN PRN Sodium Chloride 0 ml 09/05/22 06:00 Normal Saline 10 Ml Vial IJ 10/04/22 23:59 DIRECTED PRN Sterile Water 0 ml 09/05/22 06:00 Water,Injection,Sterile 10 Ml Vial IJ 10/04/22 23:59 DIRECTED PRN PFSH Active Problems Active Problems: Problem Status Onset Code Postmenopausal bleeding N95.0 Stress incontinence N39.3 Hypercholesterolemia E78.00 History of endometrial biopsy Z92.89 H/O dilation and curettage Z98.890 Bilateral primary osteoarthritis of knee M17.0 Left knee DJD M17.12 Medical History Medical History Depression Epilepsy No seizures since 1991 History of breast cancer not currently recieving tx on anatrazole maintenance therapy History of hyperparathyroidism Resolved after parathyroidectomy. HTN (hypertension) Hx of radiation therapy Obesity Surgical History Surgical History Colonoscopy - MAC (11/13/16) History of lumpectomy History of parathyroid surgery Tobacco Smoking/Tobacco Use Status: Never Alcohol Alcohol Intake: current Alcohol intake frequency: 0-2 drinks per day Alcohol type: beer and hard liquor Substance Use Substance use: Never Substance use type: does not use Details: alcohol: t-1, 1 drinks Prental History History 1 Para Hx # Term Pregnancies 1 Multiple births Hx # Pregnancies Ectopic pregnancies AB induced Hx Number of Living Children AB spontaneous Vital Signs and Lab Results Vital Signs Most Recent Vital Signs in EMR: Most Recent Vital Signs Temp Pulse Resp BP Pulse Ox 36.5 C 65 14 141/92 H 98 09/05/22 08:54 09/05/22 08:54 09/05/22 08:54 09/05/22 08:54 09/05/22 08:54 Lab Results Blood Type / Crossmatch: No Data to Display Complete Blood Count: White Blood Count 4.72 10^3/uL (4.4-10.8) 08/29/22 10:05 Red Blood Count 5.02 10^6/uL (3.93-5.22) 08/29/22 10:05 Hemoglobin 13.4 g/dL (11.2-15.7) 08/29/22 10:05 Hematocrit 41.7 % (36.0-46.0) 08/29/22 10:05 Platelet Count 324 10^3/uL (130-400) 08/29/22 10:05 Complete Metabolic Panel: Sodium 136 mmol/L (136-145) 08/29/22 10:05 Potassium 3.9 mmol/L (3.5-5.1) 08/29/22 10:05 Chloride 100 mmol/L (98-107) 08/29/22 10:05 Carbon Dioxide 27.2 mmol/L (21.0-32.0) 08/29/22 10:05 BUN 15 mg/dL (7-18) 08/29/22 10:05 Creatinine 0.9 mg/dL (0.55-1.02) 08/29/22 10:05 Est GFR (CKD-EPI 2020) 73.64 (mL/min/1.73m2) 08/29/22 10:05 Calcium 9.4 mg/dL (8.5-10.1) 08/29/22 10:05 Glucose 175 mg/dL (74-106) H 08/29/22 10:05 Liver Function Panel: No Data to Display Coagulation Panel: No Data to Display Cardiac Panel: No Data to Display Arterial Blood Gas: No Data to Display Venous Blood Gas: No Data to Display Pancreas Panel: No Data to Display Thyroid Panel: No Data to Display Infectious Disease: No Data to Display Blood Cultures: 2 No Data to Display Toxicology Panel: No Data to Display Anesthesia Assessment and Plan Anesthesia History Personal History: No History of Anesthesia Complications Family History: No Family History of Anesthesia Complications Exercise Tolerance Exercise Tolerance: Metabolic Equivalents>4 Pertinent Negatives Pertinent Negatives: No Symptoms of GERD, No Major Cardiovascular Symptoms or Complaints and No Major Pulmonary Symptoms or Complaints Cardiac & Pulmonary Exam Cardiac Exam: Normal S1/S2 Heart Sounds Pulmonary Exam: Clear Bilateral Breath Sounds Implantable Cardiac Device Does patient have a Pacemaker or an ICD?: No Airway Exam Known Difficult Airway: No Mallampati Class: 3 Mouth Opening: Normal (> 3cm) Thyromental Distance: Greater than 3 cm Neck Range of Motion: Full ROM Neck Circumference: Thick Teeth Condition: Normal Dentition Airway Comments: 1 chipped tooth lower side left ASA Classification ASA Score: ASA 3 Emergency Case?: No NPO Status NPO Status: NPO Clears >2 hours, Solids >8 hours Anesthesia Plan Resuscitation Status: Full Code Anesthesia Technique: Spinal Anesthesia Airway Planned: Natural Airway Pain Management: Surgeon and patient request nerve block and Intrathecal Analgesia Monitors Used: Standard Monitors Preoperative Comments:: Hx of 2 grandmal seizures in 1989. None since and does not take any medications for prevention. Unknown cause. 1 cocktail/day
[2022-09-05] MEDS: ceFAZolin 3,000 MG in Normal Saline 100 ML 200 MG IVPB (10:50)
--- NOTE | 2022-09-05 11:24 | W.ANESNERVE ---
Nerve Block Single Injection Procedure Date and Time Date Performed: 09/05/22 Procedure Start: 10:36 Location Where Procedure Performed Procedure Location: Day Surgery Unit Reason Performed: Postoperative Analgesia Requesting Provider: Cruz Handley Timeout Performed Timeout Performed: Yes Monitoring Used ECG, Blood Pressure and SpO2 Sterility Sterility: Hand Hygiene, Surgical Cap, Surgical Mask, Sterile Gloves and Chlorhexidine Sedation Given During Procedure Sedation Given (Indicate Dose Given): Versed IV Dose:: 2 mg Patient Mental Status Patient Mental Status: Awake Nerve Block 1st Nerve Block: Laterality: Left Block Type: Adductor Canal Ultrasound Image Saved?: Yes Needle / Catheter Used: 120mm SonoPlex II Local Anesthetic Bolus (Indicate Dose Given): Lidocaine used for local infiltration of skin, Injected in 3-5ml increments after negative blood aspiration and Bupivacaine 0.25% Dose:: 15 ml Additives (Indicate Dose Given): None Ultrasound: Sterile probe cover and gel used Nerve Stimulator: Not Used Paresthesia: None Procedure Tolerated: No Complications and Patient tolerated well Procedure Outcome: Successful Performed By: Paige Stephenson Supervised By: Faith Ocampo
[2022-09-05] MEDS: oxyCODONE 5 MG TAB PO (14:12)
--- NOTE | 2022-09-05 14:43 | W.ANESPOSTOP ---
Postoperative Evaluation Date, Time and Location Date Performed: 09/05/22 Time Performed: 14:43 Patient Location: Day Surgery Unit Vital Signs Most Recent Imported Vital Signs: Most Recent Vital Signs Temp Pulse Resp BP Pulse Ox 36.0 C L 64 18 117/75 98 09/05/22 14:13 09/05/22 14:13 09/05/22 14:13 09/05/22 14:13 09/05/22 14:13 Pain Score Most Recent Pain Score: Most Recent Pain Score Pain Level 4 09/05/22 14:30 Assessment Mental Status: Awake (Alert & Oriented to Patient Baseline) Airway and Respiratory Function: Patent airway with normal (patient baseline) respiratory exam Cardiovascular Function: Hemodynamically Stable Hydration Status: Adequately Hydrated Nausea & Vomiting: No Nausea or Vomiting Pain: Pain is tolerable per patient Peripheral Nerve Block: Regional nerve block not resolved at time of post operative discharge
--- NOTE | 2022-09-05 15:01 | PT.INIE ---
Date of service: 09/05/22 Time of Service: 15:01 PT Notes Visit Reasons: Left knee DJD Physical Therapy Day Surgery Initial Evaluation Date: 09/05/2022 Referring Doctor: OSEAS Shultz PT Orders: PT CONSULT: S/P Ortho surgery Precautions: WBAT on left LE with AD. Patient Profile/Admitting Diagnosis: Sarah is a 57-year-old female with degenerative joint disease of the left knee and is status post left total knee arthroplasty on postoperative day 0. PMHX: All Active Problems?(Updated 08/21/22 @ 08:36 by Joana Dsouza) Left knee DJD (Acute) Bilateral primary osteoarthritis of knee (Acute) Depo-Medrol injection: 12/09/21; 07/07/2021 H/O dilation and curettage (Acute) 01/07/20. for PMB.History of endometrial biopsy (Acute) Postmenopausal bleeding (Acute) Due 2020 bleeding over several days.? ES 8 mm. ?? Endometrial polyp. 10/02/2019.? EmBx. Hypercholesterolemia (Acute) Stress incontinence (Acute) Medical History? Depression Epilepsy No seizures since 1991History of hyperparathyroidism Resolved after parathyroidectomy.HTN (hypertension) Obesity Surgical History? Colonoscopy - MAC (11/13/16) History of parathyroid surgery Social History/Home Situation: Lives with Lon in a private home with 5 steps to enter. Rails are far apart but patient will have assistance of her and or his son for stair negotiation at home. 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 Equipment Owned/DME: None Subjective: Patient reports 2-10/2009 pain in the left knee at rest and with weight bearing. Denies headache, chest pain, and dizziness throughout session. Objective: General Observation: JONY wraps to left LE. Cryo/Cuff to left knee. In NAD. Mental Status: Alert and oriented x4 Pain: 2-3/10 in the left knee ROM: Right Lower Extremity: Hip flexion WFL. Hip abduction WFL. Knee flexion WFL. Ankle dorsiflexion WFL. Ankle plantarflexion WFL. Left Lower Extremity: Hip flexion WFL. Hip abduction WFL. Knee flexion 30 degrees to 90 degrees. Knee extension -30 degrees. Ankle dorsiflexion WFL. Ankle plantarflexion WFL. Strength: Right Lower Extremity: Hip flexors 5/5. Hip abductors 5/5. Knee flexors 5/5. Knee extensors 5/5. Ankle dorsiflexors 5/5. Ankle plantarflexors 5/5. Left Lower Extremity:Hip flexors 5/5. Hip abductors 5/5. Knee flexors 3-/5. Knee extensors 3-/5. Ankle dorsiflexors 5/5. Ankle plantarflexors 5/5. Sensation: Intact as to pain and light pressure in bilateral lower extremities Bed Mobility/Transfers: Supine to sit standby assist Sit to stand contact-guard assist Stand to sit standby assist Bed to chair standby assist Gait: Tolerated level surface ambulation of 150 feet using front-wheeled walker with report of 2-10/2009 pain and left knee. With quad activation. Full knee extension at mid stance on the left LE. Stairs: Up and down 3 x 4 inch steps and 2 x 6 inch steps while holding onto both rails using step to gait pattern requiring standby assist only. Balance: Static Sitting: Normal Dynamic Sitting: Normal Static Standing: Fair Dynamic Standing: Fair Special Tests: Mobility Limitations Standardized Measure [facility] 6 clicks Basic Mobility Inpatient Short Form: Raw Score: 22 CMS Score: 21 percent deficit Informed Consent/Education: Patient instructed in purpose of PT consult. Packet containing TKA exercise protocol has been given to patient. Education and training on initial set of exercises that can be done at home have been completed with patient and . THERA EX: Quad sets x 5 while reclined on chair Unilateral heel slides x5 while reclined on chair Bilateral ankle pumps x10 while reclined on chair LAQ x 5 with B legs down Demonstrated to patient how to perform short-arc SLR in supine Assessment: Sarah reports the use of front wheeled walker for all mobility ADL performance to maximize independence and reduce fall risk. Patient presents with clinical signs and symptoms consistent with current/admitting diagnoses that have resulted to mobility limitations, gait instability, generalized weakness, and impairment of motor control as demonstrated by the following impairment level findings: 1. Decreased strength to left knee major muscle groups 2. Impaired standing balance 3. Limitation of joint range of motion in left knee Impairments are contributing to the following functional limitations: 1. Inability to safely ambulate without assistive device 2. Increase completion time for mobility ADL performance 3. Increased fall risk Patient is assessed as a 96882 moderate complexity based on the following: History: 57-year-old female with impairment level findings, functional limitations, and past medical history as indicated above Examination: Demonstrable impairment in strength, balance, and mobility level with underlying impairments and functional limitations as documented above Presentation: Evolving Decision Makin moderate complexity Goals: N/A. PT evaluation and 1-2 treatment sessions only for functional mobility training using recommended AD and for HEP instruction. Plan of Care/Treatment Plan: N/A. PT evaluation and 1-2 treatment session only for functional mobility training using recommended AD and for HEP instruction. DISCHARGE RECOMMENDATIONS: Home when medically cleared by orthopedic surgeon. Recommend outpatient PT services in order to optimize functional mobility outcomes and facilitate return to independent community ambulation as well as vocational activities without an assistive device. TREATMENT CODE/TIME: 9716 2 x 20 minutes, 9753 0 x 19 minutes beginning at 15:01 PM. Thank you for the opportunity to participate in the care of this patient. Saira Riggins PT, DPT, CLT [facility] [place], [place]
--- NOTE | 2022-09-05 17:20 | ROE_ITS ---
Date of service: 09/05/22 Time of Service: 12:30 Operative Note Operative Note DATE OF PROCEDURE: 09/05/22 PRE-OP DIAGNOSIS: Left Knee Osteoarthritis POST-OP DIAGNOSIS: same PROCEDURE: Left Total Knee Replacement SURGEON: Cruz Handley COMMISSIONER OF RELOCATION SERVICES: Rosalba Puga ANESTHESIA TYPE: Spinal Refer to Anesthesia Record ESTIMATED BLOOD LOSS: 100 PATHOLOGY: none sent TOURNIQUET TIME: 0 COMPLICATIONS: None Patient was transported to: PACU Patient's condition: stable Implants: 1. Depuy Attune Cementless Cruciate Retaining Femoral Component, Size 6 2. Depuy Attune Cementless Fixed Bearing Tibial Component, Size 5 3. Depuy Attune 6x8mm CR/FB Poly 4. Depuy Attune Patellar Component, Size 35 Indications: I have seen Sarah in clinic for symptoms of knee arthritis, confirmed with radiographic findings. She has exhausted nonoperative methods and was having significant limitations in daily function and desired better function and less pain. I discussed the technical details of a knee replacement. I explained the risks of the procedure to include, but not limited to, bleeding, infection, pain, stiffness, fracture, damage to nerves and vessels, damage to muscles and tendons, loosening, need for repeat procedure, blood clot and cardiopulmonary d emise. Despite these risks, Sarah elected to proceed. Findings: There was significant signs of arthritis throughout the knee, most involving the medial compartment. Procedure Description: Sarah was greeted in the preoperative holding area where the correct side was identified and marked. The consent was reviewed with the patient and signed. The history and physical was updated. All questions were answered. Preoperative medications were administered: Acetaminophen 1000mg, Celebrex 400mg, and Gabapentin 300mg. An adductor canal block was then administered by the anesthesia team in the PACU. Sarah was taken back to the operating room. A spinal anesthestic was then administered. The patient was placed into the supine position on the operating room table. A nonsterile tourniquet was placed high onto the leg but only used for cementing. Posts were placed for positioning during the pr ocedure. All bony prominences were well padded. Prophylactic antibiotics in the form of Cefazolin were administered. 1g of Tranxemic Acid was given intravenously within 30 minutes of incision. The left leg was then prepped with Chloraprep and draped in a standard fashion with impervious stockinette. A second prep with Chloraprep was performed prior to application of Iodine impregnated skin protection. A timeout to confirm correct identity, side and site, procedure, allergies, anesthesia, and medical concerns was performed. With the knee in some flexion, a midline incision was made overlying the knee. Full thickness skin flaps were raised once the extensor mechanism was encountered. These were raised medially and laterally. Any bleeding was controlled with electrocautery. Once the extensor mechanism was fully exposed, a medial parapatellar arthrotomy was performed in a flexed position. All bleeding from the arthrotomy and the geniculate arteries was coagulated. A medial subperiosteal peel was performed with electrocautery to the midcoronal plane. The fat pad was removed while keeping the patellar tendon protected. The anterior distal femur synovium was removed for later visualization. The ACL and PCL were resected and the anterior horn of the lateral meniscus was transected. The knee was then flexed with the patella everted. Large osteophytes from the tibia were removed. Large osteophytes from the femur were removed. Using a step drill, and based on preoperative templating, the femoral canal was entered. This was done with a step drill without any difficulty. The intramedullary distal femoral cut guide was inserted, set to a 5 degree valgus cut and 9mm cut thickness. The distal femoral cut guide was then held in position and pinned. With the soft tissues protected, the distal cut was performed. This was passed over a few times to ensure a planar cut. I then turned attention to the tibia. The extramedullary guide was placed onto the leg. The distal aspect was slid medial to adjust for position of center of ankle and stay in line with shaft of the tibia. Approximately 3-5 degrees of posterior slope was kept in the proximal cutting guide. The center of the guide was aligned with the PCL. The stylus was used to assess cut thickness. The medial side, most involved side, was set for a 4mm cut. This was then held in position and pinned into place with 2 additional pins and a cross pin for stability. The medial and lateral collateral ligaments were protected and the cut was performed. With this completed, it was assessed and noted to be of appropriate dimensions. The guide was removed. A spacer block was inserted and the knee was brought into extension. The 7mm spacer block provided full extension, without hyperextension and with stability of both the medial and lateral collateral ligaments was assessed. The pins from the femur and the tibia were then removed. The distal femur was then sized. The anterior stylus was placed onto the lateral ridge of the anterior femur. This indicated a size 6 femur. The external rotation of the guide was adjusted to 3 degrees to match the epicondylar axis, perpendicular to Gerald?s line. The 4-in-1 cutting guide was the placed. The posterior medial femur cut was evaluated and appeared of good thickness. The spacer block was inserted underneath the cutting guide and stability was confirmed in 90 degrees of flexion. An christen wing was used to confirm appropriate position of the anterior cut to avoid notching. This cutting guide was ensured to be flush on the cut surface and then pinned into place with headed pins. While protecting the soft tissues, quad tendon, and collateral ligaments, the anterior and posterior cuts were performed with a saw. The central two pins were removed and the posterior and anterior chamfers were cut next. The notch-cutting guide was placed. This was pinned to lateralize the femoral component as much as possible while keeping it flush on the cut surface. This was then pinned into position. A reciprocating saw was used to make the notch cut. A rasp smoothed the cut surfaces. The medial and lateral menisci were re moved. A trial femoral component was then inserted, impacted down to the cut surfaces, and the lug holes were drilled. A provisional trial tibial component was placed and the knee was brought through range of motion. The polyethylene was trialed until there was good flexion and extension with excellent stability to the medial and lateral collaterals. The patella was tracking without thumbs. A size 8mm polyethylene component provided the best range of motion and stability with less than 2mm gapping with medial and lateral stress and full extension without significant hyperextension. The tibial cut surface was fully exposed. The tibia was then sized as a 5. The tibia had been previously marked during trialing to correspond to the center of the tibial component to help with rotation. The trial was aligned to this cristopher, approximately rotated to the medial 1/3rd of the tibial tubercle. The trial was pinned into place. The tibia was prepared with a reamer and a keel punch and juan g holes. The knee was then brought into extension and the patella was measured as 25mm. Using the patellar clamp and cut guide, this was resected to a flat surface with at least 13mm of thickness remaining. The size 35 patella fit the best. This was oriented and then clamped into position. The lugs were drilled. The trial components were removed. The final components were opened on the back table. The periosteal and capsular tissues, especially posteriorly, around the knee were then systematically injected with a periarticular cocktail consisting of 246mg of Ropivacaine, 0.5mg of Epinephrine, 0.08mg of Clonidine, and 30mg of Ketorolac, diluted to 100cc. On the back table, with the implants opened, the cement was mixed. One batch of high viscosity cement was prepared with vacuum assistance. After the cement was ready a small amount was placed on the cut surface of the patella and the patellar button was clamped into position and held. While the cement was hardening, the cementless knee components were placed. Starting with the tibial component, the tibia was subluxed anteriorly and the lug holes of the component were lined up. The tibia was then impacted with an impactor and mallet until the tibial component was in contact with the tibia. The final polyethylene component was inserted. Then, the femoral component was inserted. The lug holes were aligned and the component was impacted into position. The knee was irrigated with Surgiphor Betadine solution. This was allowed to sit in the knee for 3 minutes and then it was irrigated out with saline. After the cement had finally cured, approximately 15min, the clamp was removed from the patella and the knee was taken through range of motion. The patella was tracking with a no-thumbs technique. The capsule was then reapproximated with a No. 1 Vicryl at multiple locations. The capsule was finally closed with a No. 2 Stratafix, barbed suture. The second dosing of 1g TXA was started. Deep tissues were then reapproximated with 0 Vicryl and 2-0 Vicryl. The skin was closed with a running 3-0 Monocryl in a subcuticular fashion. This was reinforced with skin glue. A Mepilex silver dressing was applied along with a [id number] JONY wrap. A CryoCuff was applied. Sarah was transferred to the hospital bed without difficulty an suffering no apparent complication. Sarah has a good prognosis. Physical therapy will start today and without restrictions, weight-bearing as tolerated. Aspirin 81mg BID will be used for DVT prophylaxis.
== END 2022-09-05 08:24 | disposition home or self-care (01) ==
PROVIDERS: PCP Nurse Practitioner Family; Visit Provider Student in an Organized Health Care Education/Training Program
PROC: (CPT 27447; principal; 2022-09-05 11:45)
DX: M17.12 Unilateral primary osteoarthritis, left knee (principal); E66.9 Obesity, unspecified; I10 Essential (primary) hypertension; Z68.42 Body mass index [BMI] 45.0-49.9, adult
CPT/HCPCS: 27447; 76942; 97162; 97530; J0690; J1100; J2250; J2370; J2405; J2704

== ENCOUNTER 2022-09-18 11:38 | Outpatient (CLI) | payer BC, SELFPAY ==
--- NOTE | 2022-09-18 10:00 | DI.RAD_ITS ---
Exam(s) XR KNEE LT 1V XR STANDING ALIGNMENT EXAM: XR STANDING ALIGNMENT CLINICAL HISTORY: 1ST POST OP L TKA. TECHNIQUE: 2D digital imaging was performed. Standing AP views were performed from the pelvis throu gh the ankles. Lateral view left knee COMPARISON: CR XR KNEE LT 1V from 08/21/2022 CR XR STANDING ALIGNMENT from 08/21/2022 CR XR KNEE LT 1V from 09/18/2022 FINDINGS: BONES: No acute fracture is present. No bony destructive lesion is seen. Leg length discrepancy: No significant overall leg length discrepancy. JOINTS: Knees: Left knee prosthesis is unremarkable. Right knee shows marked narrowing of the medial femoral tibial joint space, with varus angulation, similar to prior. The right ankle shows joint space narrowing and spurring medially. The hip joints are not well evaluated due to under penetration.. SOFT TISSUE: Normal. IMPRESSION: Severe degenerative changes right knee. No significant leg length discrepancy. DATA REPOSITORY: RADIATION DOSE DELIVERED:
== END 2022-09-18 11:39 | disposition home or self-care (01) ==
LOC: DIORS 11:38
PROVIDERS: PCP Nurse Practitioner Family; Referring Provider Nurse Practitioner Family; Visit Provider Student in an Organized Health Care Education/Training Program
DX: Z96.652 Presence of left artificial knee joint (principal); M17.11 Unilateral primary osteoarthritis, right knee
CPT/HCPCS: 73560; 77073

== ENCOUNTER 2022-10-25 08:56 | Day surgery (SDC) | payer BC, SELFPAY ==
[2022-10-25 08:56] VITALS: BP 179/87; PULSE 82; RESP 18; TEMP 36.4; O2SAT 98
[2022-10-25] MEDS: Lactated Ringers 1,000 ML 80 ML IV (09:31)
--- NOTE | 2022-10-25 09:55 | W.PREOPHP ---
Assessment and Plan Assessment and plan (1) Arthrofibrosis of total knee arthroplasty: Status: Acute Assessment and plan: Sarah is a 57-year-old has arthrofibrosis about her left knee. She has been diligent with physical therapy continues to struggle. Therefore, given the restriction in flexion I recommended a manipulation. I previously discussed the risk of the procedure in the office. I once again reviewed those today. I discussed the risk to include bleeding, infection, continued stiffness, fracture, damage to muscles and tendons, blood clot. Despite these risks, she elects to proceed. History of Present Illness History of Present Illness Chief Complaint: Left Knee Arthrofibrosis Narrative: Sarah is a 57-year-old who has a left knee replacement. Unfortunately, she has had significant stiffness despite being diligent with physical therapy. Please the previous office note for complete detailed history. Her flexion is restricted about 85 degrees of flexion. She is here today for manipulation. She denies any new changes to her health. No chest pain or shortness of breath. Review of Systems All systems reviewed & are unremarkable except as noted in HPI and below PFSH All Active Problems Arthrofibrosis of total knee arthroplasty (Acute) History of total left knee replacement (Acute 09/05/22) Postmenopausal bleeding (Acute) Due 2020 bleeding over several days. ES 8 mm. ? Endometrial polyp. 10/02/2019. EmBx. Stress incontinence (Acute) Hypercholesterolemia (Acute) History of endometrial biopsy (Acute) H/O dilation and curettage (Acute) 01/07/20. for PMB. Bilateral primary osteoarthritis of knee (Acute) Depo-Medrol injection: 12/09/21; 07/07/2021 Medical History Depression Epilepsy No seizures since 1991 History of breast cancer not currently recieving tx on anatrazole maintenance therapy History of hyperparathyroidism Resolved after parathyroidectomy. HTN (hypertension) Hx of radiation therapy Obesity Surgical History Colonoscopy - MAC (11/13/16) History of lumpectomy History of parathyroid surgery Family History Mother Diabetes Heart disease Hypertension Father Diabetes Heart disease Hypertension Social History Smoking/Tobacco Use Status: Never Smoking risk assessment performed?: Yes Alcohol Intake: current Alcohol Intake frequency: 0-2 drinks per day Alcohol type: beer and hard liquor Drug use: Never Substance use type: does not use Household members: spouse, children and other Details: H-Lon since 1998, S-Matthew 13yo at [facility] Number of Children: 1 current occupation: [employer] Sexually active: Yes What is your relationship status?: Panel score (0-1 are the most socially isolated patients): 1 Seatbelt use: always Do you feel safe at home: Yes Do you feel safe in your relationship?: Yes History History 1 Para Hx # Term Pregnancies 1 Multiple births Hx # Pregnancies Ectopic pregnancies AB induced Hx Number of Living Children AB spontaneous Meds Allergies and Home Medications Allergies Allergy/AdvReac Type Severity Reaction Status Date / Time adhesive Allergy Severe Skin Rash Unverified 10/25/22 09:14 carbamazepine [From Tegretol] Allergy Mild Skin Rash Unverified 10/25/22 09:14 nitrile Allergy Mild Skin Rash Unverified 10/25/22 09:14 Sulfa (Sulfonamide Allergy Mild Skin Rash Unverified 10/25/22 09:14 Antibiotics) Home Medications Medication Instructions Recorded Confirmed Type Paxil 10 mg tablet (paroxetine HCl) 10 mg PO DAILY 10/31/16 10/25/22 History lisinopril 5 mg tablet 5 mg PO DAILY 10/31/16 10/25/22 History verapamil 180 mg 24 hr 360 mg PO DAILY 10/31/16 10/25/22 History capsule,extended release spironolactone 25 mg tablet 25 mg PO DAILY 10/02/19 10/25/22 History anastrozole 1 mg tablet 1 mg PO DAILY 08/21/22 10/25/22 History omeprazole 20 mg capsule,delayed 1 cap PO DAILY 09/04/22 10/25/22 History release acetaminophen 500 mg tablet 1,000 mg PO Q8H PRN pain #90 tabs 09/05/22 10/24/22 Rx diphenhydramine 25 1 tab PO DIRECTED PRN 10/24/22 10/25/22 History mg-acetaminophen 500 mg tablet Exam Resp Auscultation: clear to auscultation bilaterally Cardio Rate: regular rate Rhythm: regular rhythm Results Last Vital Signs Temp 36.4 C L 10/25/22 08:56 Pulse 82 10/25/22 08:56 Resp 18 10/25/22 08:56 BP 179/87 H 10/25/22 08:56 Pulse Ox 98 10/25/22 08:56
--- NOTE | 2022-10-25 10:04 | W.ANESPRE ---
General Info Date of Service Date Performed: 10/25/22 Height: 5 ft 4 in Weight: 122.7 kg Body Mass Index (BMI): 46.4 Surgical Procedure: Operation Date: 10/25/22 11:25 Proposed Procedure Side Surgeon p Knee Manipulation of Knee Left Cruz Handley MD Meds Allergies and Home Medications Allergies Allergy/AdvReac Type Severity Reaction Status Date / Time adhesive Allergy Severe Skin Rash Unverified 10/25/22 09:14 carbamazepine [From Tegretol] Allergy Mild Skin Rash Unverified 10/25/22 09:14 nitrile Allergy Mild Skin Rash Unverified 10/25/22 09:14 Sulfa (Sulfonamide Allergy Mild Skin Rash Unverified 10/25/22 09:14 Antibiotics) Home Medication Medication Instructions Recorded Paxil 10 mg tablet (paroxetine HCl) 10 mg PO DAILY 10/31/16 lisinopril 5 mg tablet 5 mg PO DAILY 10/31/16 verapamil 180 mg 24 hr 360 mg PO DAILY 10/31/16 capsule,extended release spironolactone 25 mg tablet 25 mg PO DAILY 10/02/19 anastrozole 1 mg tablet 1 mg PO DAILY 08/21/22 omeprazole 20 mg capsule,delayed 1 cap PO DAILY 09/04/22 release diphenhydramine 25 1 tab PO DIRECTED PRN 10/24/22 mg-acetaminophen 500 mg tablet acetaminophen 500 mg tablet 1,000 mg PO TID #90 tabs 10/25/22 hydrocodone 5 mg-acetaminophen 325 1 tab PO Q6H PRN pain #6 tabs 10/25/22 mg tablet ibuprofen 600 mg tablet 600 mg PO TID PRN pain #90 tabs 10/25/22 Current Visit Medications: Current Medications Generic Name Dose Route Start Last Admin Trade Name Freq PRN Reason Stop Dose Admin Ringer's Solution 1,000 mls @ 80 mls/hr 10/25/22 06:00 10/25/22 09:31 IV 11/23/22 23:59 80 mls/hr INFUSION KIN Administration IV Miscellaneous Supplies 1 each 10/25/22 06:00 Iv Access IV 11/23/22 23:59 DIRECTED KIN Sodium Chloride 0 ml 10/25/22 06:00 Normal Saline Flush 10 Ml Syr IV 11/23/22 23:59 PRN PRN Sodium Chloride 0 ml 10/25/22 06:00 Normal Saline 10 Ml Vial IJ 11/23/22 23:59 DIRECTED PRN Sterile Water 0 ml 10/25/22 06:00 Water,Injection,Sterile 10 Ml Vial IJ 11/23/22 23:59 DIRECTED PRN PFSH Active Problems Active Problems: Problem Status Onset Code Arthrofibrosis of total knee arthroplasty T84.82XA History of total left knee replacement 09/05/22 Z96.652 Postmenopausal bleeding N95.0 Stress incontinence N39.3 Hypercholesterolemia E78.00 History of endometrial biopsy Z92.89 H/O dilation and curettage Z98.890 Bilateral primary osteoarthritis of knee M17.0 Medical History Medical History Depression Epilepsy No seizures since 1991 History of breast cancer not currently recieving tx on anatrazole maintenance therapy History of hyperparathyroidism Resolved after parathyroidectomy. HTN (hypertension) Hx of radiation therapy Obesity Surgical History Surgical History Colonoscopy - MAC (11/13/16) History of lumpectomy History of parathyroid surgery Tobacco Smoking/Tobacco Use Status: Never Alcohol Alcohol Intake: current Alcohol intake frequency: 0-2 drinks per day Alcohol type: beer and hard liquor Substance Use Substance use: Never Substance use type: does not use Prental History History 1 Para Hx # Term Pregnancies 1 Multiple births Hx # Pregnancies Ectopic pregnancies AB induced Hx Number of Living Children AB spontaneous Vital Signs and Lab Results Vital Signs Most Recent Vital Signs in EMR: Most Recent Vital Signs Temp Pulse Resp BP Pulse Ox 36.4 C L 82 18 179/87 H 98 10/25/22 08:56 10/25/22 08:56 10/25/22 08:56 10/25/22 08:56 10/25/22 08:56 Lab Results Blood Type / Crossmatch: No Data to Display Complete Blood Count: No Data to Display Complete Metabolic Panel: No Data to Display Liver Function Panel: No Data to Display Coagulation Panel: No Data to Display Cardiac Panel: No Data to Display Arterial Blood Gas: No Data to Display Venous Blood Gas: No Data to Display Pancreas Panel: No Data to Display Thyroid Panel: No Data to Display Infectious Disease: No Data to Display Blood Cultures: No Data to Display Toxicology Panel: No Data to Display Anesthesia Assessment and Plan Anesthesia History Personal History: No History of Anesthesia Complications Family History: No Family History of Anesthesia Complications Exercise Tolerance Exercise Tolerance: Metabolic Equivalents>4 Pertinent Negatives Pertinent Negatives: No Major Cardiovascular Symptoms or Complaints and No Major Pulmonary Symptoms or Complaints Cardiac & Pulmonary Exam Cardiac Exam: Normal S1/S2 Heart Sounds Pulmonary Exam: Clear Bilateral Breath Sounds Implantable Cardiac Device Does patient have a Pacemaker or an ICD?: No Airway Exam Known Difficult Airway: No Mallampati Class: 3 Mouth Opening: Normal (> 3cm) Thyromental Distance: Greater than 3 cm Neck Range of Motion: Full ROM Neck Circumference: Thick Teeth Condition: Normal Dentition Airway Comments: 1 chipped tooth lower side left ASA Classification ASA Score: ASA 3 Emergency Case?: No NPO Status NPO Status: NPO Clears >2 hours, Solids >8 hours Anesthesia Plan Resuscitation Status: Full Code Anesthesia Technique: General Anesthesia Airway Planned: Natural Airway Monitors Used: Standard Monitors Preoperative Comments:: 57 yo female s/p left TKA for knee manipulation. Sig PMHx: HTN, GERD (omep 20)BMI 46, never smoker, occ EtOH, breast CA, parathyroidectomy. Previous Anes: - colo, rescue prop, natural airway, no issues - d/c, prop, LMA 5, no issues. - TKA, spinal, prop sedation, no issues.
[2022-10-25 10:06] VITALS: BMI 46.4
--- NOTE | 2022-10-25 10:11 | PDOC.DSDIS_ITS ---
Date of service: 10/25/22 Time of Service: 10:18 Discharge Plan Disposition Patient Disposition: Home Condition: Good Discharge Details Reason For Visit: L knee manipulation Attending Provider: Cruz Handley Primary Care Provider: Kamilah Evans Home Meds and New Rx's Prescriptions: New hydrocodone-acetaminophen 5-325 mg tablet 1 tab PO Q6H PRN (Reason: pain) Qty: 6 0RF acetaminophen 500 mg tablet 1,000 mg PO TID Qty: 90 0RF ibuprofen 600 mg tablet 600 mg PO TID PRN (Reason: pain) Qty: 90 0RF Continued anastrozole 1 mg tablet 1 mg PO DAILY spironolactone 25 mg tablet 25 mg PO DAILY paroxetine HCl [Paxil] 10 MG tablet 10 mg PO DAILY verapamil 180 MG capsule,ext rel. pellets 24 hr 360 mg PO DAILY lisinopril 5 MG tablet 5 mg PO DAILY Patient Comments: DOSE INCREASED YESTERDAY omeprazole 20 mg capsule,delayed release(DR/EC) 1 cap PO DAILY Patient Comments: TAKE ONE CAPSULE BY MOUTH EVERY DAY diphenhydramine-acetaminophen 25-500 mg Tablet 1 tab PO DIRECTED PRN Discontinued acetaminophen 500 mg tablet 1,000 mg PO Q8H PRN Qty: 90 0RF Rx Instructions: Take two tablets up to every 8 hours as needed for pain Discharge Instructions Additional Instructions: Knee Manipulation Discharge Instructions Activity: You should begin moving as soon as possible. You may work on flexion but also equally maintain extension. You may bear weight as tolerated, using crutches only for support/comfort. You should apply ice to help with swelling and elevate when possible (especially in the first few days). Dressings: You may remove the Band-Aid down after 24 hours. Medications: - You have been given hydrocodone for breakthrough pain. - Recommend to take up to 1000mg of Acetaminophen (Tylenol) and 600mg of Ibuprofen (Advil) every 8 hours as needed. These larger strength tablets were called in but you also may use [id number]. Follow-up: 7-10 days Referrals: Cruz Handley MD [ [facility] STAFF PHYSICIAN] - Activity:: Activity as Tolerated Diet:: As Tolerated Discharge Orders Discharge Orders: Discharge Order (Routine); Ordered 10/25/22 Ordered By: Mauro Pacheco DS: Diagnosis Discharge Diagnosis (1) Arthrofibrosis of total knee arthroplasty: Status: Acute
[2022-10-25] MEDS: Bupivacaine 0.5% Pres-Free 30 ML VIAL (10:59)
[2022-10-25 11:15] VITALS: BP 147/101; PULSE 79; RESP 20; TEMP 36.3; O2SAT 97
[2022-10-25 11:35] VITALS: BP 143/83; PULSE 70; RESP 18; TEMP 36.3; O2SAT 97
[2022-10-25 12:00] VITALS: BP 140/81; PULSE 87; RESP 16; TEMP 36.7; O2SAT 97
--- NOTE | 2022-10-25 12:08 | W.ANESPOSTOP ---
Postoperative Evaluation Date, Time and Location Date Performed: 10/25/22 Time Performed: 12:09 Patient Location: Day Surgery Unit Vital Signs Most Recent Imported Vital Signs: Most Recent Vital Signs Temp Pulse Resp BP Pulse Ox 36.3 C L 70 18 143/83 H 97 10/25/22 11:35 10/25/22 11:35 10/25/22 11:35 10/25/22 11:35 10/25/22 11:35 Pain Score Most Recent Pain Score: Most Recent Pain Score Pain Level 2 10/25/22 11:35 Assessment Mental Status: Awake (Alert & Oriented to Patient Baseline) Airway and Respiratory Function: Patent airway with normal (patient baseline) respiratory exam Cardiovascular Function: Hemodynamically Stable Hydration Status: Adequately Hydrated Nausea & Vomiting: No Nausea or Vomiting Pain: Pain is tolerable per patient Peripheral Nerve Block: Patient did not receive a nerve block
--- NOTE | 2022-10-25 12:50 | ROE_ITS ---
Date of service: 10/25/22 Time of Service: 11:30 Operative Note Operative Note DATE OF PROCEDURE: 10/25/22 PRE-OP DIAGNOSIS: Left Knee Arthrofibrosis s/p Replacement POST-OP DIAGNOSIS: same PROCEDURE: Left Knee Manipulation Under Anesthesia SURGEON: Cruz Handley ANESTHESIA TYPE: General:No Airway Refer to Anesthesia Record ESTIMATED BLOOD LOSS: 0 PATHOLOGY: none sent TOURNIQUET TIME: 0 COMPLICATIONS: None Patient was transported to: PACU Patient's condition: stable Indications: Sarah is a 57 year old female who is s/p left knee replacement. Despite diligent work with physical therapy there has been continued stiffness. To assist with mobility, I offered a manipulation under anesthesia. I discussed the risks of the procedure to include bleeding, pain, recurrent stiffness, fracture. Despite these risks, she elects to proceed. Findings: Preoperative flexion = 85 Postoperative flexion = 120 Preoperative extension = 0 Postoperative extension = 0 Procedure Description: The patient was greeted in the preoperative holding area. Identity was confirmed and the correct side was identified and marked. The consent was reviewed the patient and signed. History and physical was updated. Sarah was taken back to the operating room. The left side was identified as the correct side. A timeout was performed for safe surgery. A general anesthetic was administered. The knee was then prepped with ChloraPrep and an intra-articular injection of 10 cc of 0.5% bupivacaine was administered. Once a muscle relaxant was fully on board manipulation was performed. Pre- manipulation range of motion was noted. A gentle manipulation was performed first into flexion using a very small lever arm and adding gentle and progressive pressure to the tibia. There is audible and palpable crepitus with improvement in range of motion. This was cycled and repeated multiple times. The leg was then brought into extension and gentle anterior posterior pressure was applied with a supported hand behind the proximal tibia and knee. This was brought back into flexion was once again manipulated with gentle and progressive pressure. Final range of motion numbers were recorded. A Band-Aid was applied to the injection site. She was awakened from anesthesia and taken to the PACU in stable condition.
== END 2022-10-25 12:08 | disposition home or self-care (01) ==
PROVIDERS: PCP Nurse Practitioner Family; Visit Provider Student in an Organized Health Care Education/Training Program
PROC: (CPT 27570; principal; 2022-10-25 11:15)
DX: T84.82XA Fibrosis due to internal orthopedic prosthetic devices, implants and grafts, initial encounter (principal); Z96.652 Presence of left artificial knee joint
CPT/HCPCS: 27570

== ENCOUNTER 2022-11-17 14:51 | Outpatient (REF) | payer BC, SELFPAY ==
[2022-11-17 15:45] LABS: Hemoglobin A1C 6.2 % (<5.7)
[2022-11-17 16:05] LABS: Vitamin D 25 Total 28.1 ng/mL (30-100)
[2022-11-17 16:10] LABS: Anion Gap 7.7 mmol/L (3-11); BUN 13 mg/dL (7-18); CO2 27.3 mmol/L (21.0-32.0); CREATININE 0.9 mg/dL (0.55-1.02); Calcium 9.9 mg/dL (8.5-10.1); Chloride 101 mmol/L (98-107); Estimated GFR 73.64 (mL/min/1.73m2); Glucose 96 mg/dL (74-106); Magnesium 2.1 mg/dL (1.8-2.4); Potassium 4.9 mmol/L (3.5-5.1); Sodium 136 mmol/L (136-145); TSH (W/Ref FT4) 0.93 uIU/mL (0.36-3.74); Vitamin B12 864 pg/mL (193-986)
== END 2022-11-17 14:52 | disposition home or self-care (01) ==
LOC: NCHCN 14:51
PROVIDERS: PCP Nurse Practitioner Family; Visit Provider Nurse Practitioner Family
DX: R73.03 Prediabetes (principal); E21.3 Hyperparathyroidism, unspecified; E55.9 Vitamin D deficiency, unspecified; F32.89 Other specified depressive episodes; I10 Essential (primary) hypertension; E78.00 Pure hypercholesterolemia, unspecified; E66.8 Other obesity; Z79.899 Other long term (current) drug therapy
CPT/HCPCS: 80048; 82306; 82607; 83036; 83735; 84443

== ENCOUNTER 2023-01-11 03:07 | Outpatient (CLI) | payer BC, SELFPAY ==
[2023-01-11 14:58] LABS: HGB 12.8 g/dL (11.2-15.7); MCH 26.3 pg (27.0-33.0); MCV 82 fL (80-95); MPV 8.7 fL (8.0-11.0); Platelet Count 331 10^3/uL (130-400); RBC 4.86 10^6/uL (3.93-5.22); RDW 14.3 % (11.7-14.6); RDW-SD 42.1 fL; WBC 6.58 10^3/uL (4.4-10.8)
[2023-01-11 17:12] LABS: Anion Gap 8.9 mmol/L (3-11); BUN 15 mg/dL (7-18); CO2 25.1 mmol/L (21.0-32.0); Calcium 9.3 mg/dL (8.5-10.1); Chloride 99 mmol/L (98-107); Glucose 114 mg/dL (74-106); Potassium 4.4 mmol/L (3.5-5.1); Sodium 133 mmol/L (136-145)
== END 2023-01-11 03:08 | disposition home or self-care (01) ==
LOC: LBO 03:07
PROVIDERS: PCP Nurse Practitioner Family; Visit Provider Student in an Organized Health Care Education/Training Program
DX: M25.561 Pain in right knee (principal); M17.11 Unilateral primary osteoarthritis, right knee; Z01.818 Encounter for other preprocedural examination; Z01.812 Encounter for preprocedural laboratory examination
CPT/HCPCS: 36415; 80048; 85027

== ENCOUNTER 2023-01-17 07:09 | Day surgery (SDC) | payer BC, SELFPAY ==
[2023-01-17] VITALS (15 sets, daily range): BP systolic 86–136; BP diastolic 39–80; PULSE 54–68; RESP 14–18; TEMP 36.1–36.8; O2SAT 92–99; BMI 46.5
[2023-01-17] MEDS: Gabapentin 300 MG CAP PO (07:53)
[2023-01-17] MEDS: Acetaminophen 500 MG TAB 1000 MG PO (07:53)
[2023-01-17] MEDS: Lactated Ringers 1,000 ML 80 ML IV (08:10)
--- NOTE | 2023-01-17 08:42 | W.ANESPRE ---
General Info Date of Service Date Performed: 01/17/23 Height: 5 ft 4 in Weight: 123 kg Body Mass Index (BMI): 46.5 Surgical Procedure: Operation Date: 01/17/23 09:25 Proposed Procedure Side Surgeon p Knee Total Arthroplasty, Cementless CR/FB Right Cruz Handley MD Meds Allergies and Home Medications Allergies Allergy/AdvReac Type Severity Reaction Status Date / Time adhesive Allergy Severe Skin Rash Unverified 01/17/23 07:51 carbamazepine [From Tegretol] Allergy Mild Skin Rash Unverified 01/17/23 07:51 nitrile Allergy Mild Skin Rash Unverified 01/17/23 07:51 Sulfa (Sulfonamide Allergy Mild Skin Rash Unverified 01/17/23 07:51 Antibiotics) Home Medication Medication Instructions Recorded Paxil 10 mg tablet (paroxetine HCl) 10 mg PO DAILY 10/31/16 lisinopril 5 mg tablet 5 mg PO DAILY 10/31/16 verapamil 180 mg 24 hr 360 mg PO DAILY 10/31/16 capsule,extended release spironolactone 25 mg tablet 25 mg PO DAILY 10/02/19 anastrozole 1 mg tablet 1 mg PO DAILY 08/21/22 omeprazole 20 mg capsule,delayed 1 cap PO DAILY 09/04/22 release diphenhydramine 25 1 tab PO DIRECTED PRN 10/24/22 mg-acetaminophen 500 mg tablet trazodone 50 mg tablet 50 mg PO DAILY 12/11/22 acetaminophen 500 mg tablet 1,000 mg PO TID #90 tabs 01/17/23 aspirin 81 mg tablet,delayed 81 mg PO BID #60 tabs 01/17/23 release dexamethasone 4 mg tablet 4 mg PO DAILY #2 tabs 01/17/23 gabapentin 300 mg capsule 300 mg PO QHS #14 caps 01/17/23 meloxicam 15 mg tablet 15 mg PO DAILY #60 tabs 01/17/23 oxycodone 5 mg tablet 5 mg PO Q4H PRN pain #20 tabs 01/17/23 Current Visit Medications: Current Medications Generic Name Dose Route Start Last Admin Trade Name Freq PRN Reason Stop Dose Admin Acetaminophen 1,000 mg 01/17/23 06:00 01/17/23 07:53 Acetaminophen 500 Mg Tab PO 01/17/23 16:00 1,000 mg PREOP KIN Administration Acetaminophen 1,000 mg 01/17/23 07:23 Acetaminophen 500 Mg Tab PO 02/16/23 07:22 TID PRN PRN Analgesia Docusate Sodium 100 mg 01/17/23 07:23 Docusate Sodium 100 Mg Cap PO 02/16/23 07:22 BID PRN PRN Constipation Gabapentin 300 mg 01/17/23 06:00 01/17/23 07:53 Gabapentin 300 Mg Cap PO 01/17/23 16:00 300 mg PREOP KIN Administration Tranexamic Acid 1,000 mg/ 60 mls @ 360 mls/hr 01/17/23 06:00 Sodium Chloride IVPB 01/17/23 16:00 PREOP KIN Ringer's Solution 1,000 mls @ 80 mls/hr 01/17/23 06:00 01/17/23 08:10 IV 02/15/23 23:59 80 mls/hr INFUSION KIN Administration Cefazolin Sodium 3,000 mg/ 100 mls @ 200 mls/hr 01/17/23 06:00 Sodium Chloride IVPB 01/17/23 18:00 PREOP KIN IV Miscellaneous Supplies 1 each 01/17/23 06:00 Iv Access IV 02/15/23 23:59 DIRECTED KIN Ondansetron HCl 4 mg 01/17/23 07:23 Ondansetron 4 Mg/2 Ml Vial IVP 02/16/23 07:22 Q6H PRN PRN Nausea Oxycodone HCl 0 mg 01/17/23 07:23 Oxycodone 5 Mg Tab PO 02/16/23 07:22 Q3H PRN PRN Pain Polyethylene Glycol 17 gm 01/17/23 07:23 Polyethylene Glycol 3350 17 Gm Packet PO 02/16/23 07:22 BID PRN PRN Constipation Sodium Chloride 0 ml 01/17/23 06:00 Normal Saline Flush 10 Ml Syr IV 02/15/23 23:59 PRN PRN Sodium Chloride 0 ml 01/17/23 06:00 Normal Saline 10 Ml Vial IJ 02/15/23 23:59 DIRECTED PRN Sterile Water 0 ml 01/17/23 06:00 Water,Injection,Sterile 10 Ml Vial IJ 02/15/23 23:59 DIRECTED PRN PFSH Active Problems Active Problems: Problem Status Onset Code Postmenopausal bleeding N95.0 Stress incontinence N39.3 Hypercholesterolemia E78.00 H/O dilation and curettage Z98.890 Bilateral primary osteoarthritis of knee M17.0 Arthrofibrosis of total knee arthroplasty T84.82XA Degenerative joint disease of right knee M17.11 Medical History Medical History Depression Epilepsy No seizures since 1991 History of breast cancer not currently recieving tx on anatrazole maintenance therapy History of endometrial biopsy History of hyperparathyroidism Resolved after parathyroidectomy. HTN (hypertension) Hx of radiation therapy Obesity Surgical History Surgical History Colonoscopy - MAC (11/13/16) History of lumpectomy History of parathyroid surgery History of surgery Exc. lymph nodes History of total left knee replacement (09/05/22) s/p manipulation October 2022 Laceration of left middle finger with tendon involvement prior to 1993 Tobacco Smoking/Tobacco Use Status: Never Alcohol Alcohol Intake: current Alcohol intake frequency: 0-2 drinks per day Alcohol type: beer and hard liquor Substance Use Substance use: Never Substance use type: does not use Details: 01/17/23 pt used edibles marijuana 2 nights ago Prental History History 1 Para Hx # Term Pregnancies 1 Multiple births Hx # Pregnancies Ectopic pregnancies AB induced Hx Number of Living Children AB spontaneous Vital Signs and Lab Results Vital Signs Most Recent Vital Signs in EMR: Most Recent Vital Signs Temp Pulse Resp BP Pulse Ox 36.7 C 67 16 129/77 93 01/17/23 07:41 01/17/23 07:41 01/17/23 07:41 01/17/23 07:41 01/17/23 07:41 Lab Results Blood Type / Crossmatch: No Data to Display Complete Blood Count: White Blood Count 6.58 10^3/uL (4.4-10.8) 01/11/23 14:52 Red Blood Count 4.86 10^6/uL (3.93-5.22) 01/11/23 14:52 Hemoglobin 12.8 g/dL (11.2-15.7) 01/11/23 14:52 Hematocrit 40.0 % (36.0-46.0) 01/11/23 14:52 Platelet Count 331 10^3/uL (130-400) 01/11/23 14:52 Complete Metabolic Panel: Sodium 133 mmol/L (136-145) L 01/11/23 14:52 Potassium 4.4 mmol/L (3.5-5.1) 01/11/23 14:52 Chloride 99 mmol/L (98-107) 01/11/23 14:52 Carbon Dioxide 25.1 mmol/L (21.0-32.0) 01/11/23 14:52 BUN 15 mg/dL (7-18) 01/11/23 14:52 Creatinine 1.0 mg/dL (0.55-1.02) 01/11/23 14:52 Est GFR (CKD-EPI 2020) 64.90 (mL/min/1.73m2) 01/11/23 14:52 Calcium 9.3 mg/dL (8.5-10.1) 01/11/23 14:52 Glucose 114 mg/dL (74-106) H 01/11/23 14:52 Liver Function Panel: No Data to Display Coagulation Panel: No Data to Display Cardiac Panel: No Data to Display Arterial Blood Gas: No Data to Display Venous Blood Gas: No Data to Display Pancreas Panel: No Data to Display Thyroid Panel: No Data to Display Infectious Disease: No Data to Display Blood Cultures: No Data to Display Toxicology Panel: No Data to Display Anesthesia Assessment and Plan Anesthesia History Personal History: No History of Anesthesia Complications Family History: No Family History of Anesthesia Complications Exercise Tolerance Exercise Tolerance: Metabolic Equivalents>4 Pertinent Negatives Pertinent Negatives: No Symptoms of GERD, No Major Cardiovascular Symptoms or Complaints, No Major Pulmonary Symptoms or Complaints and No History of CVA/TIA Cardiac & Pulmonary Exam Cardiac Exam: Normal S1/S2 Heart Sounds Pulmonary Exam: Clear Bilateral Breath Sounds Implantable Cardiac Device Does patient have a Pacemaker or an ICD?: No Airway Exam Known Difficult Airway: No Mallampati Class: 3 Mouth Opening: Normal (> 3cm) Thyromental Distance: Greater than 3 cm Neck Range of Motion: Full ROM Neck Circumference: Thick Teeth Condition: Normal Dentition Airway Comments: 1 chipped tooth lower side left ASA Classification ASA Score: ASA 3 Emergency Case?: No NPO Status NPO Status: NPO Clears >2 hours, Solids >8 hours Anesthesia Plan Resuscitation Status: Full Code Anesthesia Technique: Spinal Anesthesia Airway Planned: Natural Airway Pain Management: Surgeon and patient request nerve block Monitors Used: Standard Monitors
[2023-01-17] MEDS: ceFAZolin 3,000 MG in Normal Saline 100 ML 200 MG IVPB (09:30)
--- NOTE | 2023-01-17 10:18 | W.ANESNERVE ---
Nerve Block Single Injection Procedure Date and Time Date Performed: 01/17/23 Procedure Start: 08:54 Location Where Procedure Performed Procedure Location: Day Surgery Unit Reason Performed: Postoperative Analgesia Requesting Provider: Cruz Handley Timeout Performed Timeout Performed: Yes Monitoring Used ECG, Blood Pressure and SpO2 Sterility Sterility: Hand Hygiene, Surgical Cap, Surgical Mask, Sterile Gloves and Chlorhexidine Sedation Given During Procedure Sedation Given (Indicate Dose Given): Versed IV Dose:: 2mg Patient Mental Status Patient Mental Status: Awake Nerve Block 1st Nerve Block: Laterality: Right Block Type: Adductor Canal Ultrasound Image Saved?: Yes Needle / Catheter Used: 120mm SonoPlex II Local Anesthetic Bolus (Indicate Dose Given): Lidocaine used for local infiltration of skin, Injected in 3-5ml increments after negative blood aspiration and Bupivacaine 0.25% Dose:: 20ml Additives (Indicate Dose Given): None Ultrasound: Sterile probe cover and gel used Nerve Stimulator: Not Used Paresthesia: None Procedure Tolerated: No Complications and Patient tolerated well Procedure Outcome: Successful Performed By: Yara Leon Supervised By: Faith Ocampo
--- NOTE | 2023-01-17 11:43 | W.ANESPOSTOP ---
Postoperative Evaluation Date, Time and Location Date Performed: 01/17/23 Time Performed: 11:43 Patient Location: Day Surgery Unit Vital Signs Most Recent Imported Vital Signs: Most Recent Vital Signs Temp Pulse Resp BP Pulse Ox 36.4 C L 55 L 14 105/54 L 99 01/17/23 11:23 01/17/23 11:36 01/17/23 11:36 01/17/23 11:36 01/17/23 11:36 Pain Score Most Recent Pain Score: Most Recent Pain Score Pain Level 0 01/17/23 09:04 Assessment Mental Status: Awake (Alert & Oriented to Patient Baseline) Airway and Respiratory Function: Patent airway with normal (patient baseline) respiratory exam Cardiovascular Function: Hemodynamically Stable Hydration Status: Adequately Hydrated Nausea & Vomiting: No Nausea or Vomiting Pain: Pt. Denies Any Pain Peripheral Nerve Block: Regional nerve block not resolved at time of post operative discharge
[2023-01-17] MEDS: ePHEDrine 25 MG/5 ML Syringe IVP (11:51)
--- NOTE | 2023-01-17 12:54 | PT.INIE ---
PT Notes Visit Reasons: R TKR Physical Therapy Day Surgery Initial Evaluation Date: 01/17/2023 Referring Doctor: OSEAS Mishra PT Orders: PT CONSULT: Eval/treat Precautions: WBAT on the right LE with AD. Patient Profile/Admitting Diagnosis: Sarah is a 57-year-old female with degenerative joint disease of the right knee and status post right total knee arthroplasty on postoperative day 0. PMHX: Medical History?(Updated 01/11/23 @ 14:31 by Joana Dsouza) Depression Epilepsy No seizures since 1991History of breast cancer not currently recieving tx on anatrazole maintenance therapy History of endometrial biopsy History of hyperparathyroidism Resolved after parathyroidectomy. HTN (hypertension) Hx of radiation therapy Obesity Surgical History?(Updated 01/11/23 @ 14:13 by Joana Dsouza) Colonoscopy - MAC (11/13/16) History of lumpectomy History of parathyroid surgery History of total left knee replacement (09/05/22) s/p manipulation October 2022 Laceration of left middle finger with tendon involvement prior to 1993 Social History/Home Situation: Lives with in a private home with 5 steps to enter with rails on both sides. Equipment Owned/DME: [facility] Subjective: Reports increase in pain from 3/10 to 6/10 with weightbearing with PT. Nurse Marita notified. Mobility assessment continued half an hour after pain pill intake with good response. Objective: General Observation: Resting in bed. JONY wraps to right LE. Cryocuff to right knee. TDS to left leg. Mental Status: Alert and oriented x4 Pain: As above ROM: Right Lower Extremity: Hip flexion WFL. Hip abduction WFL. Knee flexion about 30 degrees to 90 degrees. Knee extension about -30 degrees. Ankle dorsiflexion WFL. Ankle plantarflexion WFL. Left Lower Extremity: Hip flexion WFL. Hip abduction WFL. Knee flexion WFL. Ankle dorsiflexion WFL. Ankle plantarflexion WFL. Strength: Right Lower Extremity: Hip flexors 4/5. Hip abductors 4/5. Knee flexors 3-/5. Knee extensors 3-/5. Ankle dorsiflexors 4/5. Ankle plantarflexors 4/5. Left Lower Extremity: Hip flexors 4/5. Hip abductors 4/5. Knee flexors 4/5. Knee extensors 4/5. Ankle dorsiflexors 4/5. Ankle plantarflexors 4/5. Sensation: Intact as to pain and light pressure in bilateral lower extremities Bed Mobility/Transfers: Supine to sit contact-guard assist Sit to stand contact-guard assist Stand to sit contact-guard assist Bed to chair contact-guard assist Gait: 15 feet from bedside to bedside recliner with step to gait pattern with front-wheeled walker requiring contact-guard assist with report of increased pain to 5?6/10. After half an hour of pain pill intake patient tolerated 150 feet of level surface ambulation with same device with step through gait pattern with standby assist. Stairs: Ascended/descended 6 x 4 inch steps and 4 x 6 inch steps while holding onto bilateral rails with step to gait pattern requiring only standby assist. Balance: Static Sitting: Good Dynamic Sitting: Good Static Standing: Fair Dynamic Standing: Fair Special Tests: Mobility Limitations Standardized Measure [facility] AM-PAC 6 clicks Basic Mobility Inpatient Short Form: Raw Score: 20 CMS Score: Informed Consent/Education: Patient instructed in purpose of PT consult. Packet containing TKA exercise protocol has been given to patient. Education and training on initial set of exercises that can be done at home have been completed with patient and patient's as follows: Access Code: [email or web address] URL: [email or web address] Date: 01/17/2023 Prepared by: Saira Riggins Exercises - Supine Quadricep Sets - 1 x daily - 7 x weekly - 1 sets - 10 reps - 5 hold - Supine Heel Slide - 1 x daily - 7 x weekly - 1 sets - 10 reps - 5 hold - Supine Ankle Pumps - 1 x daily - 7 x weekly - 1 sets - 10 reps - 5 hold - Small Range Straight Leg Raise - 1 x daily - 7 x weekly - 1 sets - 10 reps - 5 hold - Seated March - 1 x daily - 7 x weekly - 1 sets - 10 reps - 5 hold Assessment: The use of a front wheeled walker to maximize independence and reduce fall risk. Patient presents with clinical signs and symptoms consistent with current/admitting diagnoses that have resulted to mobility limitations, gait instability, generalized weakness, and impairment of motor control as demonstrated by the following impairment level findings: 1. Decreased strength to R knee major muscle groups 2. Impaired standing balance 3. Limitation of joint range of motion in R knee Impairments are contributing to the following functional limitations: 1. Inability to safely ambulate without assistive device 2. Increase completion time for mobility ADL performance 3. Increased fall risk Patient is assessed as a 08321 moderate complexity based on the following: History: 57-year-old female with impairment level findings, functional limitations, and past medical history as indicated above Examination: Demonstrable impairment in strength, balance, and mobility level with underlying impairments and functional limitations as documented above Presentation: Evolving Decision Makin moderate complexity Goals: N/A. PT evaluation and 1-2 treatment sessions only for functional mobility training using recommended AD and for HEP instruction. Plan of Care/Treatment Plan: N/A. PT evaluation and 1-2 treatment session only for functional mobility training using recommended AD and for HEP instruction. DISCHARGE RECOMMENDATIONS: Home when medically cleared by orthopedic surgeon. Recommend outpatient PT services in order to optimize functional mobility outcomes and facilitate return to independent community ambulation without an assistive device. TREATMENT CODE/TIME: 71399 x 20 minutes, 76404 x 26 minutes beginning at 12:58 PM and 14:10 PM. Thank you for the opportunity to participate in the care of this patient. Saira Riggins PT, DPT, CLT [facility] [place], [place]
--- NOTE | 2023-01-17 13:18 | PDOC.DSDIS_ITS ---
Date of service: 01/17/23 Time of Service: 13:18 Discharge Plan Disposition Patient Disposition: Home Condition: Good Discharge Details Reason For Visit: R TKR Attending Provider: Cruz Handley Primary Care Provider: Kamilah Evans Home Meds and New Rx's Prescriptions: New acetaminophen 500 mg tablet 1,000 mg PO TID Qty: 90 3RF aspirin 81 mg tablet,delayed release (DR/EC) 81 mg PO BID Qty: 60 0RF dexamethasone 4 mg tablet 4 mg PO DAILY Qty: 2 0RF gabapentin 300 mg capsule 300 mg PO QHS Qty: 14 0RF oxycodone 5 mg tablet 5 mg PO Q4H MDD 6 tabs PRN (Reason: pain) Qty: 20 0RF meloxicam 15 mg tablet 15 mg PO DAILY Qty: 60 1RF Continued anastrozole 1 mg tablet 1 mg PO DAILY spironolactone 25 mg tablet 25 mg PO DAILY trazodone 50 mg tablet 50 mg PO DAILY paroxetine HCl [Paxil] 10 MG tablet 10 mg PO DAILY verapamil 180 MG capsule,ext rel. pellets 24 hr 360 mg PO DAILY lisinopril 5 MG tablet 5 mg PO DAILY Patient Comments: DOSE INCREASED YESTERDAY omeprazole 20 mg capsule,delayed release(DR/EC) 1 cap PO DAILY Patient Comments: TAKE ONE CAPSULE BY MOUTH EVERY DAY diphenhydramine-acetaminophen 25-500 mg Tablet 1 tab PO DIRECTED PRN Discontinued acetaminophen 500 mg tablet 1,000 mg PO TID Qty: 90 0RF ibuprofen 600 mg tablet 600 mg PO TID PRN (Reason: pain) Qty: 90 0RF Discharge Instructions Additional Instructions: Total Knee Discharge Instructions Activity: The most important activity is to walk and to work on gentle motion (both flexion and extension). You should try to take short walks a few times a day. It is important that when resting you work on keeping the knee straight. Avoid putting a pillow behind the knee as this will encourage flexion. Work on range of motion exercises as provided by Physical Therapy. - Start outpatient physical therapy within 2 weeks. - You should wear the VINICIO hose on both legs for 2 weeks. You may remove these at night. You may also use any compression sock in place of the VINICIO hose. - Utilize [employer] to review exercises, see videos on exercises and obtain basic information pertaining to your surgery and your recovery. Dressing: Remove the Khanh wrap by 2 days after your surgery and put on the VINICIO stocking given to you from the hospital. Keep the surgical dressing (underneath the KHANH wrap) in place for at least one week. After the first week it may be removed and replaced with light gauze and tape or nothing. The wound and dressing may get wet after 3 days but avoid soaking the dressing or otherwise it will need to be changed. Many people prefer covering the dressing with cling wrap (saran wrap) to minimize it from getting soaked. If it gets wet, just pat dry. If it starts to peel off then it will need to be changed. Medications: - You should take Tylenol and anti-inflammatory meloxicam as your primary pain control medications. If the Celebrex is too expensive or not covered, please call the office for another alternative (Advil/Ibuprofen or Naproxen/Aleve) - You have been prescribed a stronger pain medication Oxycodone for breakthrough pain, take as needed as prescribed. - You will also continue your stomach acid reduction agent omeprazole to help reduce stomach acid and reflux. - You have been prescribed Gabapentin to take at night for restlessness and nerve pain. - You will be taking Aspirin 81mg twice a day for DVT prevention unless instructed otherwise. - You have also been prescribed Decadron to take to control post-operative nausea and pain. You will start this tomorrow. - If you have constipation you should take Colace or Miralax (both [id number]). It takes most people 3-4 days to have a bowel movement. Follow-up: 2 weeks If you have any acute concerns or questions, please do not hesitate to contact the office at [phone]. You may contact Dr. Handley with any questions after hours through the hospital at [phone] or on his cell phone at [phone]. Stand Alone Forms: Anesthesia Discharge Inst., Yared.Nerve Block Instructions, Layo Young ([facility]) Referrals: Cruz Handley MD [ [facility] STAFF PHYSICIAN] - 02/01/23 11:00 am Equipment/Supplies: Walker Activity:: Activity as Tolerated Remove Dressings/Wound Care:: Do Not Remove Shower/Bathe:: 72 hours Diet:: As Tolerated Discharge Orders Discharge Orders: Discharge Order (Routine); Ordered 01/17/23 Ordered By: Cruz Handley DS: Diagnosis Discharge Diagnosis (1) Bilateral primary osteoarthritis of knee: Status: Acute
[2023-01-17] MEDS: oxyCODONE 5 MG TAB PO (13:30)
--- NOTE | 2023-01-17 18:59 | ROE_ITS ---
Date of service: 01/17/23 Time of Service: 10:45 Operative Note Operative Note DATE OF PROCEDURE: 01/17/23 PRE-OP DIAGNOSIS: Right Knee Osteoarthritis POST-OP DIAGNOSIS: same PROCEDURE: Right Total Knee Replacement SURGEON: Cruz Handley SALON COORDINATOR: Cristopher Pacheco ANESTHESIA TYPE: Spinal Refer to Anesthesia Record ESTIMATED BLOOD LOSS: 150 PATHOLOGY: none sent TOURNIQUET TIME: 0 COMPLICATIONS: None Patient was transported to: PACU Patient's condition: stable Implants: 1. Depuy Attune Cementless Cruciate Retaining Femoral Component, Size 6 Narrow 2. Depuy Attune Cementless Fixed Bearing Tibial Component, Size 5 3. Depuy Attune 6x6mm CR/FB Poly 4. Depuy Attune Patellar Component, Size 35 Indications: I have seen Sarah in clinic for symptoms of knee arthritis, confirmed with radiographic findings. Sarah has exhausted nonoperative methods and was having significant limitations in daily function and desired better function and less pain. I discussed the technical details of a knee replacement. She had a successful replacement on the left side. I explained the risks of the procedure to include, but not limited to, bleeding, infection, pain, stiffness, fracture, damage to nerves and vessels, damage to muscles and tendons, loosening, need for repeat procedure, blood clot and cardiopulmonary demise. Despite these risks, Sarah elected to proceed. Findings: There was significant signs of arthritis throughout the knee. Procedure Description: Sarah was greeted in the preoperative holding area where the correct side was identified and marked. The consent was reviewed with the patient and signed. The history and physical was updated. All questions were answered. Preoperative medications were administered: Acetaminophen 1000mg, Celebrex 400mg, and Gabapentin 300mg. An adductor canal block was then administered by the anesthesia team in the PACU. Sarah was taken back to the operating room. A spinal anesthestic was then administered. The patient was placed into the supine position on the operating room table. A nonsterile tourniquet was placed high onto the leg but only used for cementing. Posts were placed for positioning during the procedure. All bony prominences were well padded. Prophylactic antibiotics in the form of Cefazolin were administered. 1g of Tranxemic Acid was given intravenously within 30 minutes of incision. The right leg was then prepped with Chloraprep and draped in a standard fashion with impervious stockinette. A second prep with Chloraprep was performed prior to application of Iodine impregnated skin protection. A timeout to confirm correct identity, side and site, procedure, allergies, anesthesia, and medical concerns was performed. With the knee in some flexion, a midline incision was made overlying the knee. Full thickness skin flaps were raised once the extensor mechanism was encountered. These were raised medially and laterally. Any bleeding was controlled with electrocautery. Once the extensor mechanism was fully exposed, a medial parapatellar arthrotomy was performed in a flexed position. All bleeding from the arthrotomy and the geniculate arteries was coagulated. A medial subperiosteal peel was performed with electrocautery to the midcoronal plane. Due to the significant varus deformity the entire medial tibial plateau was exposed. The fat pad was removed while keeping the patellar tendon protected. The anterior distal femur synovium was removed for later visualization. The ACL and PCL were resected and the anterior horn of the lateral meniscus was transected. The knee was then flexed with the patella everted. Large osteophytes from the tibia were removed. Large osteophytes from the femur were removed. Using a step drill, and based on preoperative templating, the femoral canal was entered. This was done with a step drill without any difficulty. The intramedullary distal femoral cut guide was inserted, set to a 5 degree valgus cut and 9mm cut thickness. The distal femoral cut guide was then held in position and pinned. With the soft tissues protected, the distal cut was performed. This was passed over a few times to ensure a planar cut. I then turned attention to the tibia. The extramedullary guide was placed onto the leg. The distal aspect was slid medial to adjust for position of center of ankle and stay in line with shaft of the tibia. Approximately 3-5 degrees of posterior slope was kept in the proximal cutting guide. The center of the guide was aligned with the PCL. The stylus was used to assess cut thickness. The medial side, most involved side, was set for a 4mm cut. This was then held in position and pinned into place with 2 additional pins and a cross pin for stability. The medial and lateral collateral ligaments were protected and the cut was performed. With this completed, it was assessed and noted to be of appropriate dimensions. The guide was removed. A spacer block was inserted and the knee was brought into extension. The 6mm spacer block provided full extension, without hyperextension and with stability of both the medial and lateral collateral ligaments was assessed. The pins from the femur and the tibia were then removed. The distal femur was then sized. The anterior stylus was placed onto the lateral ridge of the anterior femur. This indicated a size 6 narrow femur. The external rotation of the guide was adjusted to 5 degrees to match the epicondylar axis, perpendicular to [place]?s line. The 4-in-1 cutting guide was the placed. The posterior medial femur cut was evaluated and appeared of good thickness. The spacer block was inserted underneath the cutting guide and stability was confirmed in 90 degrees of flexion. An christen wing was used to confirm appropriate position of the anterior cut to avoid notching. This cutting guide was ensured to be flush on the cut surface and then pinned into place with headed pins. While protecting the soft tissues, quad tendon, and collateral ligaments, the anterior and posterior cuts were performed with a saw. The central two pins were removed and the posterior and anterior chamfers were cut next. The notch-cutting guide was placed. This was pinned to lateralize the femoral component as much as possible while keeping it flush on the cut surface. This was then pinned into position. A reciprocating saw was used to make the notch cut. A rasp smoothed the cut surfaces. The medial and lateral menisci were removed. A trial femoral component was then inserted, impacted down to the cut surfaces, and the lug holes were drilled. A provisional trial tibial component was placed and the knee was brought through range of motion. There was noted to be excellent extension and flexion. There was no significant instability. The patella was tracking without thumbs. A size 6mm polyethylene component provided the best range of motion and stability with less than 2mm gapping with medial and lateral stress and full extension without significant hyperextension. The tibial cut surface was fully exposed. The tibia was then sized as a 5. The tibia had been previously marked during trialing to correspond to the center of the tibial component to help with rotation. The trial was aligned to this cristopher, approximately rotated to the medial 1/3rd of the tibial tubercle. The trial was pinned into place. The tibia was prepared with a reamer and a keel punch and lug holes. The knee was then brought into extension and the patella was measured as 24mm. Using the patellar clamp and cut guide, this was resected to a flat surface with at least 13mm of thickness remaining. The size 35 patella fit the best. This was oriented and then clamped into position. The lugs were drilled. The trial components were removed. The final components were opened on the back table. The periosteal and capsular tissues, especially posteriorly, around the knee were then systematically injected with a periarticular cocktail consisting of 246mg of Ropivacaine, 0.5mg of Epinephrine, 0.08mg of Clonidine, and 30mg of Ketorolac, diluted to 100cc. On the back table, with the implants opened, the cement was mixed. One batch of high viscosity cement was prepared with vacuum assistance. After the cement was ready a small amount was placed on the cut surface of the patella and the patellar button was clamped into position and held. While the cement was hardening, the cementless knee components were placed. Starting with the tibial component, the tibia was subluxed anteriorly and the lug holes of the component were lined up. The tibia was then impacted with an impactor and mallet until the tibial component was in contact with the tibia. Then, the femoral component was inserted. The lug holes were aligned and the component was impacted into position. The final polyethylene component was inserted. The knee was irrigated with Surgiphor Betadine solution. This was allowed to sit in the knee for 3 minutes and then it was irrigated out with saline. After the cement had finally cured, approximately 15min, the clamp was removed from the patella and the knee was taken through range of motion. The patella was tracking with a no-thumbs technique. The capsule was then reapproximated with a No. 1 Vicryl at multiple locations. The capsule was finally closed with a No. 2 Stratafix, barbed suture. The second dosing of 1g TXA was started. Deep tissues were then reapproximated with 0 Vicryl and 2-0 Vicryl. The skin was closed with a running 3-0 Monocryl in a subcuticular fashion. This was reinforced with skin glue. A Mepilex silver dressing was applied along with a [id number] JONY wrap. A CryoCuff was applied. Sarah was transferred to the hospital bed without difficulty an suffering no apparent complication. Sarah has a good prognosis. Physical therapy will start today and without restrictions, weight-bearing as tolerated. Aspirin 81mg BID will be used for DVT prophylaxis.
== END 2023-01-17 14:50 | disposition home or self-care (01) ==
PROVIDERS: PCP Nurse Practitioner Family; Visit Provider Student in an Organized Health Care Education/Training Program
PROC: (CPT 27447; principal; 2023-01-17 09:15)
DX: M17.11 Unilateral primary osteoarthritis, right knee (principal)
CPT/HCPCS: 27447; 76942; 97162; 97530; J0690; J1100; J2250; J2405

== ENCOUNTER 2023-02-01 11:10 | Outpatient (CLI) | payer BC, SELFPAY ==
--- NOTE | 2023-02-01 11:00 | DI.RAD_ITS ---
Exam(s) XR STANDING ALIGNMENT XR KNEE RT 1V EXAM: XR STANDING ALIGNMENT CLINICAL HISTORY: 1ST POST OP R TKA. TECHNIQUE: 2D digital imaging was performed. Standing AP views were performed from the pelvis throu gh the ankles. Lateral view right knee COMPARISON: CR XR STANDING ALIGNMENT from 09/18/2022 CR XR KNEE RT 1V from 02/01/2023 FINDINGS: BONES: No acute fracture is present. No bony destructive lesion is seen. Leg length discrepancy: The left femoral head projects slightly superior to the right. JOINTS: Knees: Bilateral total knee prostheses show satisfactory alignment. The right ankle shows narrowing of the medial tibiotalar joint space. The left ankle is unremarkable . The hip joints are unremarkable. SOFT TISSUE: Normal. IMPRESSION: Bilateral total knee prostheses. Minimal leg length discrepancy. DATA REPOSITORY: RADIATION DOSE DELIVERED:
== END 2023-02-01 11:11 | disposition home or self-care (01) ==
LOC: DIORS 11:11
PROVIDERS: PCP Nurse Practitioner Family; Visit Provider Student in an Organized Health Care Education/Training Program
DX: Z96.651 Presence of right artificial knee joint (principal); Z47.1 Aftercare following joint replacement surgery; Z96.652 Presence of left artificial knee joint
CPT/HCPCS: 73560; 77073

== ENCOUNTER → 2023-04-06 00:49 | Outpatient (CLI) | payer BC, SELFPAY ==
--- NOTE | 2023-04-06 09:07 | DI.CT_ITS ---
Exam(s) CT CHEST WO EXAM: CT CHEST WO CLINICAL HISTORY: NEOPLASM UPPER OUTER QUAD LT BREAST, C50.412, Z17.0, ? CHANGE FROM 04/14/22 TECHNIQUE: Imaging Protocol: Axial computed tomography images with coronal and sagittal reformatted images were created and reviewed CONTRAST MATERIAL: Intravenous: Omnipaque 350 Contrast volume:structured data ml. CT CT CHEST WO from 04/14/2022 FINDINGS: Pulmonary parenchyma: No consolidation. Stable bilateral upper pulmonary nodules. No new nodules. Tracheobronchial tree: No bronchiectasis or mucous plugging. Mediastinum and Lala: No dominant adenopathy or fluid collection. Pleura: No effusion. No pneumothorax. Heart: The heart is not dilated. No coronary artery calcifications are seen. Aorta: Thoracic aorta non-dilated. Mild atherosclerotic changes. Upper abdomen: Unremarkable. Bones: Degenerative changes in the spine. Soft tissues: Status post left lumpectomy. Previously noted post operative fluid collection no longe r present. Area of scarring seen posterior laterally near the pectoral muscle. Mild skin thickening . No new abnormalities. IMPRESSION: Resolution of postoperative collection in the left breast status post lumpectomy. Residual area of s carring is seen. Stable appearance of bilateral areas of nodularity in the upper lobes. RADIATION DOSE DELIVERED: 683.33mGy.cm Total DLP DATA REPOSITORY: All CT scans at this facility are submitted to the National Radiology Data Registry (NRDR) Dose Index Registry (DIR) with the [employer] (A[employer]). RADIATION OPTIMIZATION: All CT scans at this facility use at least one of these dose optimization te chniques: automated exposure control; mA and/or kV adjustment per patient size (includes targeted exa ms where dose is matched to clinical indication); or iterative reconstruction.
--- NOTE | 2023-04-06 09:38 | DI.DEXA_ITS ---
Exam(s) XR DEXA BONE DENSITY W/WO LANA EXAM: XR DEXA BONE DENSITY W/WO LANA CLINICAL HISTORY: SENIOR CARE TREATMENT WITH ANASTROZOLE, COMP TO 10/16/17, H/O BREAST CANCER TECHNIQUE: COMPARISON: DX DEXA BONE DENSITY WITH LANA from 10/16/2017 FINDINGS: Lateral Spine Image: Unremarkable. No compression deformities identified. Left hip: Total T-Score: 1.0. This compares to 1.2 on the prior examination. Total Z-Score: 2.0 T- and Z-scores: Within normal limits. Lumbar Spine: Total T-Score: 0.8. This compares to 0.6 on the prior examination. Total Z-Score: 2.2 T- and Z-scores: Within normal limits. IMPRESSION: No evidence of osteoporosis.
== END ==
PROVIDERS: PCP Nurse Practitioner Family; Visit Provider Internal Medicine Hematology & Oncology
DX: Z12.2 Encounter for screening for malignant neoplasm of respiratory organs (principal); Z85.3 Personal history of malignant neoplasm of breast; Z90.12 Acquired absence of left breast and nipple; C50.412 Malignant neoplasm of upper-outer quadrant of left female breast
CPT/HCPCS: 71250; 77080

== ENCOUNTER 2023-10-10 15:02 | Outpatient (CLI) | payer OTHER, SELFPAY ==
--- NOTE | 2023-10-10 14:00 | DI.RAD_ITS ---
Exam(s) XR SHOULDER RT COMPLETE 2+V EXAM: XR SHOULDER RT COMPLETE 2+V CLINICAL HISTORY: RIGHT SHOULDER PAIN. TECHNIQUE: 2D digital imaging was performed. Three views. COMPARISON: No exams were available for comparison FINDINGS: BONES: No acute fracture is present. No bony destructive lesion is seen. JOINTS: No dislocation present. Spurring at AC joint. Mild spurring at the margin of the glenoid. Glenohumeral joint space is maintained. SOFT TISSUE: Ossification seen near lesser tuberosity could represent calcific tendinosis. IMPRESSION: Biceps calcific tendinosis. Mild degenerative changes DATA REPOSITORY: RADIATION DOSE DELIVERED:
== END 2023-10-10 15:03 | disposition home or self-care (01) ==
LOC: DIORS 15:02
PROVIDERS: PCP Nurse Practitioner Family; Visit Provider Physician Assistant
DX: M75.21 Bicipital tendinitis, right shoulder (principal)
CPT/HCPCS: 73030

== ENCOUNTER 2023-11-15 09:24 | Outpatient (REF) | payer OTHER, SELFPAY ==
[2023-11-15 15:29] LABS: Abs Immature Grans 0.01 10^3/uL (0.0-0.06); Absolute Basophil Count 0.02 10^3/uL (0.0-0.2); Absolute Eosinophil Count 0.04 10^3/uL (0.0-0.7); Absolute Lymphocyte Count 0.77 10^3/uL (1.2-3.4); Absolute Monocyte Count 0.35 10^3/uL (0.1-0.8); Absolute Neutrophil Count 2.74 10^3/uL (1.2-6.7); Basophils % 0.5; HCT 40.8 % (36.0-46.0); HGB 13.3 g/dL (11.2-15.7); Immature Grans % 0.3; Lymphocytes % 19.6; MCH 26.9 pg (27.0-33.0); MCHC 32.6 % (32.0-36.0); MCV 82 fL (80-95); MPV 9.7 fL (8.0-11.0); Monocytes % 8.9; Neutrophils % 69.7; Platelet Count 318 10^3/uL (130-400); RBC 4.95 10^6/uL (3.93-5.22); RDW 14.1 % (11.7-14.6); WBC 3.93 10^3/uL (4.4-10.8)
[2023-11-15 16:12] LABS: Hemoglobin A1C 6.3 % (<5.7)
[2023-11-15 16:24] LABS: Iron 111 ug/dL (50-170); Total Iron Binding Capacity 381 ug/dL (250-450); Transferrin Sat 29 % (15-50)
[2023-11-15 16:49] LABS: ALT 46 U/L (14-59); AST 19 U/L (15-37); Albumin 4.2 g/dL (3.4-5.0); Alkaline Phosphatase 103 U/L (46-116); Anion Gap 10.8 mmol/L (3-11); BUN 18 mg/dL (7-18); Bilirubin, Total 0.4 mg/dL (0.2-1.0); CO2 25.2 mmol/L (21.0-32.0); CREATININE 0.9 mg/dL (0.55-1.02); Calcium 9.9 mg/dL (8.5-10.1); Calculated LDL 135 mg/dL (<100); Chloride 102 mmol/L (98-107); Cholesterol 229 mg/dL (<200); Estimated GFR 73.19 (mL/min/1.73m2); Ferritin 83 ng/mL (8-252); Glucose 104 mg/dL (74-106); HDL Cholesterol 70 mg/dL (40-60); Magnesium 1.7 mg/dL (1.8-2.4); Potassium 5.1 mmol/L (3.5-5.1); Sodium 138 mmol/L (136-145); TSH (W/Ref FT4) 0.89 uIU/mL (0.36-3.74); Total Protein 7.2 g/dL (6.4-8.2); Triglyceride 122 mg/dL (<150); Vitamin B12 1215 pg/mL (193-986)
[2023-11-15 16:56] LABS: Vitamin D 25 Total 32.7 ng/mL (30-100)
== END 2023-11-15 09:25 | disposition home or self-care (01) ==
LOC: NCHCN 09:24
PROVIDERS: PCP Nurse Practitioner Family; Visit Provider Nurse Practitioner Family
DX: E21.3 Hyperparathyroidism, unspecified (principal); E11.9 Type 2 diabetes mellitus without complications; I10 Essential (primary) hypertension
CPT/HCPCS: 80053; 80061; 82306; 82607; 82728; 83036; 83540; 83550; 83735; 84443; 85025

== ENCOUNTER 2023-12-27 15:44 | Outpatient (CLI) | payer OTHER, SELFPAY ==
--- NOTE | 2023-12-27 10:28 | DI.RAD_ITS ---
Exam(s) XR KNEE LT 2V AP,LAT XR KNEE RT 2V AP,LAT EXAM: XR KNEE LT 2V AP,LAT INDICATION: annual f/u L TKA. COMPARISON: CR XR KNEE RT 1V from 02/01/2023 CR XR STANDING ALIGNMENT from 02/01/2023 CR XR KNEE RT 2V AP,LAT from 12/27/2023 TECHNIQUE: 2D digital imaging was performed. Two views of both knees. FINDINGS: There has been no change in the alignment of the bilateral total knee prosthesis. There are no abno rmal bony lucencies. No joint effusions are seen. Impression: Stable appearance of bilateral total knee prostheses. DATA REPOSITORY: RADIATION DOSE DELIVERED:
== END 2023-12-27 15:45 | disposition home or self-care (01) ==
LOC: DIORS 15:44
PROVIDERS: PCP Nurse Practitioner Family; Visit Provider Student in an Organized Health Care Education/Training Program
DX: Z96.652 Presence of left artificial knee joint (principal); Z96.651 Presence of right artificial knee joint; Z47.1 Aftercare following joint replacement surgery
CPT/HCPCS: 73560

== ENCOUNTER 2024-03-27 16:23 | Outpatient (REF) | payer OTHER, SELFPAY ==
[2024-03-27 21:23] LABS: Abs Immature Grans 0.02 10^3/uL (0.0-0.06); Absolute Basophil Count 0.03 10^3/uL (0.0-0.2); Absolute Eosinophil Count 0.07 10^3/uL (0.0-0.7); Absolute Lymphocyte Count 1.38 10^3/uL (1.2-3.4); Absolute Monocyte Count 0.81 10^3/uL (0.1-0.8); Absolute Neutrophil Count 4.57 10^3/uL (1.2-6.7); Basophils % 0.4 %; HCT 43.1 % (36.0-46.0); HGB 13.8 g/dL (11.2-15.7); Immature Grans % 0.3 %; Lymphocytes % 20.1 %; MCV 84 fL (80-95); MPV 9.7 fL (8.0-11.0); Monocytes % 11.8 %; Neutrophils % 66.4 %; Platelet Count 311 10^3/uL (130-400); RBC 5.11 10^6/uL (3.93-5.22); RDW 13.5 % (11.7-14.6); RDW-SD 41.5 fL; WBC 6.88 10^3/uL (4.4-10.8)
[2024-03-27 22:03] LABS: Hemoglobin A1C 6.1 % (<5.7)
== END 2024-03-27 16:24 | disposition home or self-care (01) ==
LOC: NCHCN 16:23
PROVIDERS: PCP Nurse Practitioner Family; Visit Provider Nurse Practitioner Family
DX: E11.9 Type 2 diabetes mellitus without complications (principal); R53.83 Other fatigue
CPT/HCPCS: 83036; 85025

== ENCOUNTER 2024-05-01 02:58 | Outpatient (CLI) | payer OTHER, SELFPAY ==
[2024-05-01 17:02] LABS: Magnesium 2.1 mg/dL (1.8-2.4)
== END 2024-05-01 02:59 | disposition home or self-care (01) ==
PROVIDERS: PCP Nurse Practitioner Family; Visit Provider Nurse Practitioner Family
DX: K30 Functional dyspepsia (principal)
CPT/HCPCS: 36415; 83735

== ENCOUNTER 2024-11-19 09:04 | Outpatient (REF) | payer OTHER, SELFPAY ==
[2024-11-19 14:37] LABS: Abs Immature Grans 0.01 10^3/uL (0.0-0.06); Absolute Basophil Count 0.03 10^3/uL (0.0-0.2); Absolute Eosinophil Count 0.07 10^3/uL (0.0-0.7); Absolute Lymphocyte Count 0.96 10^3/uL (1.2-3.4); Absolute Monocyte Count 0.46 10^3/uL (0.1-0.8); Absolute Neutrophil Count 3.17 10^3/uL (1.2-6.7); Basophils % 0.6 %; Eosinophils % 1.5 %; HCT 42.6 % (36.0-46.0); HGB 13.5 g/dL (11.2-15.7); Immature Grans % 0.2 %; Lymphocytes % 20.4 %; MCH 27.1 pg (27.0-33.0); MCHC 31.7 % (32.0-36.0); MCV 86 fL (80-95); MPV 9.6 fL (8.0-11.0); Monocytes % 9.8 %; Neutrophils % 67.5 %; Platelet Count 311 10^3/uL (130-400); RBC 4.98 10^6/uL (3.93-5.22); RDW 13.7 % (11.7-14.6); RDW-SD 42.6 fL
[2024-11-19 15:01] LABS: Hemoglobin A1C 6.1 % (<5.7)
[2024-11-19 15:34] LABS: Anion Gap 8.5 mmol/L (3-11); BUN 12 mg/dL (7-18); CO2 27.5 mmol/L (21.0-32.0); CREATININE 0.9 mg/dL (0.55-1.02); Chloride 106 mmol/L (98-107); Estimated GFR 72.73 (mL/min/1.73m2); Ferritin 52 ng/mL (8-252); Glucose 101 mg/dL (74-106); Potassium 4.6 mmol/L (3.5-5.1); Sodium 142 mmol/L (136-145); TSH 1.18 uIU/mL (0.36-3.74); Vitamin D 25 Total 33 ng/mL (30-100)
[2024-11-19 15:39] LABS: Iron 73 ug/dL (50-170); Total Iron Binding Capacity 356 ug/dL (250-450); Transferrin Sat 21 % (15-50)
[2024-11-20 08:31] LABS: Transferrin 286 mg/dL (201-352)
== END 2024-11-19 09:05 | disposition home or self-care (01) ==
LOC: NCHCN 09:04
PROVIDERS: PCP Nurse Practitioner Family; Visit Provider Nurse Practitioner Family
DX: E21.3 Hyperparathyroidism, unspecified (principal); E11.9 Type 2 diabetes mellitus without complications; E55.9 Vitamin D deficiency, unspecified; R71.8 Other abnormality of red blood cells; E83.42 Hypomagnesemia
CPT/HCPCS: 80048; 82306; 82728; 83036; 83540; 83550; 83735; 84443; 84466; 85025

== ENCOUNTER 2024-11-25 11:45 | Outpatient (REF) | payer OTHER, SELFPAY ==
--- NOTE | 2024-11-25 08:00 | PAPFT_PTH ---
PATIENT: Sarah Gomez LOC: [facility]#:[id number] AGE/SX: 59/F ROOM: RE11/25/[address]: Kamilah Evans : 1965 BED: DIS: 11/25/2024 SPEC #: [id number] RECD: 11/25/24 17:45 STATUS: ALIX REBrett #: [id number] VICENTE: 11/25/24 08:[address]: Kamilah Evans DEPT: [facility] Cytology RECD BY: Ashley Wyatt Tissues: 1 - CX/ENDOCX FOR PAP SMEARS Procedures: PAP THIN PREP/[facility] Screening HPV DNA PROBE Comments: [id number] (HPV 16 & 18/45)
== END 2024-11-25 11:46 | disposition home or self-care (01) ==
LOC: NCHCN 11:45
PROVIDERS: PCP Nurse Practitioner Family; Visit Provider Nurse Practitioner Family
DX: Z11.51 Encounter for screening for human papillomavirus (HPV) (principal); Z01.419 Encounter for gynecological examination (general) (routine) without abnormal findings
CPT/HCPCS: 88142; 87624